=== PATIENT | male | born 1950 | race Caucasian/White ===

== ENCOUNTER 2016-07-15 09:25 | Inpatient (IN) ==
[2016-07-13 15:17] LABS: Basophils % 0.4 % (0.0-0.8); Eosinophils # 0.3 10*3/uL (0.0-0.87); Hematocrit 41.5 VOL% (42.0-52.0); Hemoglobin 14.7 GM/DL (14.0-18.0); Immature Granulocytes % 0.2 %; Immature Granulocytes Absolute 0.02 #; Lymphocytes # 2.7 10*3/uL (1.4-4.0); Mean Corpuscular HGB Conc 35.4 GM/DL (32-36); Mean Corpuscular Hemoglobin 33 PG (27-34); Mean Corpuscular Volume 93.3 FL (87-102); Mean Platelet Volume 9.6 FL (9.6-12.0); Monocytes # 0.7 10*3/uL (0.11-0.8); Monocytes % 7.9 % (1.7-12.7); Neutrophils # 4.7 10*3/uL (1.4-7.4); Neutrophils % 56.5 % (38.7-73.9); Platelet Count 215 10*3/uL (130-400); Red Blood Count 4.45 10*6/uL (3.8-5.5); Red Cell Distribution Width 11.7 % (9.3-17.3); White Blood Count 8.3 10*3/uL (4.5-13.71)
[2016-07-13 15:41] LABS: Calcium 8.7 MG/DL (8.5-10.1); Osmolality,Calculated 285.4 MOS/KG (273-304); Potassium 4.7 MMOL/L (3.5-5.1)
--- NOTE | 2016-07-13 16:29 | XRay Report ---
XR chest 2V Indication: Preop evaluation Comparison: Chest x-ray dated January 23, 2016 Technique: Frontal and lateral views of the chest Findings: Cardiomediastinal silhouette is stable in configuration. Continued elevation of the right hemidiaphragm. Chronic changes of lungs without focal consolidation, pleural effusion, or pneumothorax. Osseous and surrounding soft tissue structures appear grossly unchanged. IMPRESSION: Stable chest x-ray without acute cardiopulmonary process demonstrated. Continued elevation of the right hemidiaphragm. PROCEDURE INTERPRETED AT [facility] DEPARTMENT OF RADIOLOGY Final Report Signed by: Dr Alvin Egan
--- NOTE | 2016-07-15 10:19 | EKG Report ---
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
[2016-07-15] MEDS ORDERED: LACTATED RINGERS 1,000 ML IV SCH (10:30)
[2016-07-15] MEDS ORDERED: FAMOTIDINE 20 MG TABLET PO ONE (10:32)
[2016-07-15] MEDS ORDERED: DIAZEPAM 5 MG TABLET PO ONE (10:32)
[2016-07-15] MEDS ORDERED: DIAZEPAM 5 MG TABLET ONE (10:43)
[2016-07-15] MEDS ORDERED: ceFAZolin 1,000 MG VIAL ONE (10:43)
[2016-07-15] MEDS ORDERED: FAMOTIDINE 20 MG TABLET ONE (10:44)
[2016-07-15] MEDS ORDERED: SODIUM CHLORIDE 0.9% 100 ML IV ONE (10:44)
--- NOTE | 2016-07-15 12:30 | History and Physical Update ---
History and Physical Update - History and Physical H&P was reviewed, the patient examined and there: are no changes in the patients condition since last H&P was completed. (I discussed the surgical plan with the patient. I discussed the possibility of a fibular osteotomy. All questions were answered.)
[2016-07-15] MEDS ORDERED: LIDOCAINE 100 MG/5 ML SYRINGE ONE (13:14)
[2016-07-15] MEDS ORDERED: PROPOFOL 200 MG/20 ML VIAL IV ONE (13:14)
[2016-07-15] MEDS ORDERED: ONDANSETRON 4 MG/2 ML VIAL ONE ×2 (13:14→17:04)
[2016-07-15] MEDS ORDERED: ROPIVACAINE 0.5% 30 ML VIAL ONE (15:04)
[2016-07-15] MEDS ORDERED: BACITRACIN OINT 0.9 GM PACK TOP ONE (16:05)
[2016-07-15] MEDS ORDERED: DOCUSATE SODIUM 100 MG CAPSULE PO PRN (16:20)
--- NOTE | 2016-07-15 16:20 | XRay Report ---
XR tibia fibula LT Indication: Hardware revision Comparison: None available Findings: Fluoroscopic imaging was provided during revision of the left tibial markie. Hardware position appears to within normal limits. There is osteotomy of the fibula. Fluoroscopy time 107 seconds Impression: Hardware revision left tibia as described above. PROCEDURE INTERPRETED AT [facility] DEPARTMENT OF RADIOLOGY Final Report Signed by: Dr. Mahin Guillen
[2016-07-15] MEDS ORDERED: DEXTROSE 50% 25 GM/50 ML VIAL IV PRN (16:21)
[2016-07-15] MEDS ORDERED: GLUCAGON 1 MG VIAL IM PRN (16:21)
[2016-07-15] MEDS ORDERED: ONDANSETRON 4 MG/2 ML VIAL IV PRN ×2 (16:22→17:08)
[2016-07-15] MEDS ORDERED: MAGNESIUM HYDROXIDE SUSP 30 ML UDCUP PO PRN (16:22)
[2016-07-15] MEDS ORDERED: KETOROLAC 30 MG/1 ML VIAL IV PRN (16:22)
[2016-07-15] MEDS ORDERED: MORPHINE 2 MG/1 ML SYRINGE IV PRN (16:22)
--- NOTE | 2016-07-15 16:37 | Operative Note ---
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 His limb was exsanguinated with Esmarch. Tourniquet was inflated to 300 mmHg. Estimated tourniquet time was 90 minutes. It was released prior to intramedullary reaming. The lateral end of the broken screw was identified with image intensification. A longitudinal incision was made over the anterior lateral aspect of his distal leg. Using sharp and blunt dissection the screw was identified and removed. A longitudinal incision was made to remove the anterior to posterior screw. The retinaculum was incised longitudinally. The contents of the anterior compartment were retracted laterally. The screw was identified and easily removed. Incision was made medially. The medial to lateral screw was identified and the medial portion of the broken screw was removed. A longitudinal incision incorporating his 2 previous incisions was made over his proximal interlocks. The proximal interlocks were easily removed. A longitudinal incision was made median parapatellar. The end cap was identified and removed. The tibial nail was removed. A longitudinal incision was made laterally over his distal fibular diaphysis. Deep fascia was incised. The fibula was exposed subperiosteally. An oblique osteotomy was performed resecting approximately a centimeter. A beaded guidewire was passed. The intramedullary canal was sequentially reamed to 14 mm. A blocking screw was placed from anterior to posterior in attempt to correct the varus alignment. The blocking screw cut through the bone when the nail was passed. The screw was subsequently removed. A Synthes 13 x 330 mm nail was placed. A dynamic proximal locking screw was placed. Distally, the nail was locked through an anterior to posterior screw and an oblique distal screw. His multiple wounds were irrigated with normal saline. Deep layers were approximated with 0 Vicryl. Subcutaneous used tissues proximate 3-0 Vicryl. Eduin used to approximate the skin. A sterile dressing and short leg posterior molded splint was applied. The patient received an intraoperative popliteal block. He was extubated and transferred recovery room in stable condition. Image intensification was used in multiple planes throughout the procedure. Surgeon / Physician: Esvin Cummins Jr. Results - Labs CBC & BMP: 07/16/16 04:43 07/16/16 04:43 Discharge Plan - Discharge Medications No Action sitaGLIPtin [Januvia] 100 mg PO DAILY glyBURIDE [Glyburide] 5 mg PO BID Docusate Sodium [Colace] 100 mg PO DAILY PRN PRN Reason: Constipation Aspirin [Children's Aspirin] 81 mg PO DAILY Omeprazole [Prilosec] 20 mg PO DAILY Lisinopril 40 mg PO BID NIFEdipine XL TAB [Procardia Xl] 60 mg PO DAILY HYDROcodone/ACETAMIN 10-325 [[place] 10-325] 1 tablet PO Q6H PRN #24 tablet PRN Reason: finger fracture Celecoxib [Celebrex] 200 mg PO DAILY Gabapentin 300 mg PO TID Duloxetine HCl [Cymbalta] 60 mg PO DAILY Metoprolol Tartrate Tab [Lopressor Tab] 100 mg PO BID Magnesium Oxide [Magox 400] 2 tablet PO BID - Follow Up or Referral - Forms/Instructions
[2016-07-15] MEDS ORDERED: DESFLURANE 1 UNIT/15 MINUTE INH ONE (16:50)
[2016-07-15] MEDS ORDERED: MIDAZOLAM 2 MG/2 ML VIAL ONE (16:50)
[2016-07-15] MEDS ORDERED: ePHEDrine 50 MG/ML AMP ONE (16:50)
[2016-07-15] MEDS ORDERED: SEVOFLURANE 1 UNIT/15 MINUTE INH ONE (16:50)
[2016-07-15] MEDS ORDERED: fentaNYL 100 MCG/2 ML VIAL ONE (16:50)
[2016-07-15] MEDS ORDERED: ACETAMINOPHEN 1,000 MG/100 ML VIAL IV ONE (16:50)
[2016-07-15] MEDS ORDERED: SODIUM CHLORIDE 0.9% 1,000 ML IV ONE (16:50)
[2016-07-15] MEDS ORDERED: HYDROmorphone 2 MG/1 ML VIAL ONE (17:04)
[2016-07-15] MEDS: HYDROmorphone 2 MG/1 ML VIAL IV PRN ×4 (17:04→17:19)
[2016-07-15] MEDS: INSULIN LISPRO 100 UNIT/ML SUBCUT SCH (18:48)
[2016-07-15] MEDS: LACTATED RINGERS 1,000 ML IV SCH ×2 (19:33→19:34)
[2016-07-15] MEDS: MORPHINE 2 MG/1 ML SYRINGE IV PRN (22:02)
[2016-07-15] MEDS: MAGNESIUM OXIDE 400 MG TABLET PO SCH (22:03)
[2016-07-15] MEDS: GABAPENTIN 300 MG CAPSULE PO SCH (22:03)
[2016-07-15] MEDS: METOPROLOL TARTRATE 100 MG TABLET PO SCH (22:03)
[2016-07-15] MEDS: LISINOPRIL 20 MG TABLET PO SCH (22:03)
[2016-07-16] MEDS: INSULIN LISPRO 100 UNIT/ML SUBCUT SCH ×5 (00:50→18:18)
[2016-07-16] MEDS: MORPHINE 2 MG/1 ML SYRINGE IV PRN ×2 (02:05→12:32)
[2016-07-16] MEDS: LACTATED RINGERS 1,000 ML IV SCH (02:07)
[2016-07-16 05:37] LABS: Basophils % 0.1 % (0.0-0.8); Eosinophils # 0.2 10*3/uL (0.0-0.87); Eosinophils % 2.2 % (0.00-10.9); Hematocrit 35.2 VOL% (42.0-52.0); Hemoglobin 11.7 GM/DL (14.0-18.0); Immature Granulocytes % 0.5 %; Immature Granulocytes Absolute 0.04 #; Lymphocytes # 2.2 10*3/uL (1.4-4.0); Lymphocytes % 26.4 % (21.2-54.2); Mean Corpuscular HGB Conc 33.2 GM/DL (32-36); Mean Corpuscular Hemoglobin 32 PG (27-34); Mean Corpuscular Volume 95.9 FL (87-102); Mean Platelet Volume 9.8 FL (9.6-12.0); Monocytes # 0.8 10*3/uL (0.11-0.8); Neutrophils # 5.2 10*3/uL (1.4-7.4); Neutrophils % 61.8 % (38.7-73.9); Platelet Count 157 10*3/uL (130-400); Red Blood Count 3.67 10*6/uL (3.8-5.5); Red Cell Distribution Width 11.9 % (9.3-17.3); White Blood Count 8.5 10*3/uL (4.5-13.71)
[2016-07-16 06:08] LABS: Calcium 8.2 MG/DL (8.5-10.1); Osmolality,Calculated 285.4 MOS/KG (273-304)
--- NOTE | 2016-07-16 08:26 | Internal Medicine Consult Note ---
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 Patient is doing well after surgery. He will be started on therapy * Hypertension. Blood pressure is stable * Diabetes. Will keep him on a sliding scale along with his home medication * Coronary artery disease. Stable * Depression. Continue current medications * Discussed with . Patient will probably need a swing bed Current Visit: No Qualifiers: Encounter type: initial encounter Fracture type: closed Qualified Code(s) : S82.202A - Unspecified fracture of shaft of left tibia, initial encounter for closed fracture (2) Coronary artery disease Status: Acute Current Visit: No (3) Gastroesophageal reflux disease Status: Acute Current Visit: No (4) Depression Status: Chronic Current Visit: No (5) Hypertension Status: Chronic Current Visit: No Qualifiers: Hypertension type: essential hypertension Qualified Code(s): I10 - Essential (primary) hypertension (6) Type 2 diabetes mellitus Status: Chronic Current Visit: No Qualifiers: Diabetes mellitus complication status: without complication History of Present Illness - Consult Narrative Reason for consult: Medical management History of present illness: Mr. Roni Martin is a 66 year old male with history of multiple medical problems including coronary artery disease, hypertension, diabetes, chronic smoking, back pain and chronic alcoholism. Patient was admitted to undergo repair of left tibial nonunion with exchange intramedullary nailing and fibular osteotomy and hardware removal. Patient underwent surgery yesterday and is feeling okay this morning. He denies any chest pain or shortness of breath. He denies any nausea vomiting or diarrhea. He denies any fever or chills. He has quit smoking according to the patient. He is trying to quit alcohol use. He lives at home with his . CC: Esvin Cummins Jr., - Home Medications and Allergies Home Medications: Home Medications Medication Instructions Recorded Confirmed Type Aspirin [Children's Aspirin] 81 mg PO DAILY 12/05/14 07/15/16 History Docusate Sodium [Colace] 100 mg PO DAILY PRN 12/05/14 07/15/16 History Lisinopril 40 mg PO BID 12/05/14 07/15/16 History NIFEdipine XL TAB [Procardia Xl] 60 mg PO DAILY 12/05/14 07/15/16 History Omeprazole [Prilosec] 20 mg PO DAILY 12/05/14 07/15/16 History glyBURIDE [Glyburide] 5 mg PO BID 12/05/14 07/15/16 History sitaGLIPtin [Januvia] 100 mg PO DAILY 12/05/14 07/15/16 History HYDROcodone/ACETAMIN 10-325 [[place] 1 tablet PO Q6H PRN #24 tablet 03/08/1507/15 Rx 10-325] Celecoxib [Celebrex] 200 mg PO DAILY 07/14/16 07/15/16 History Duloxetine HCl [Cymbalta] 60 mg PO DAILY 07/14/16 07/15/16 History Gabapentin 300 mg PO TID 07/14/16 07/15/16 History Magnesium Oxide [Magox 400] 2 tablet PO BID 07/14/16 07/15/16 History Metoprolol Tartrate Tab [Lopressor 100 mg PO BID 07/14/16 07/15/16 History Tab] Allergies/Adverse Reactions: Allergies Allergy/AdvReac Type Severity Reaction Status Date / Time Iodinated Contrast Media - Allergy Severe ANAPHYLAXIS Verified 07/15/16 10:01 IV Dye iodine AdvReac Severe ANAPHYLAXIS Verified 07/15/16 10:01 12 point system: reviewed and no additional remarkable complaints except as stated (Mentioned in HPI) Medical,Surgical,& Family Hx - Medical History Cardio: History of: CAD (s/p stents x2 by Dr Mena), Hypertension Psychological: History of: Depression Neurology: No history of: Seizures HEENT: History of: Dental Problems (IMPLANTS) No history of: Glaucoma Endocrine: History of: Diabetes Mellitus (IDDM), Diabetes Mellitus (NIDDM), Dyslipidemia Genitourinary: History of: Kidney Stones Gastrointestinal: History of: GERD, Gastrointestinal Bleed (ulcer), GI Problems (iron def anemia) Musculoskeletal: History of: Degenerative Disk Disease, Herniated Disk, Musculoskeletal Problems (FX LEFT TIBIA) No history of: Amputation Hematology: History of: Anemia (iron deficient) No history of: Blood Transfusion Reaction Other: No history of: Anesthesia Reactions - Surgical History Cardiac Surgeries: Sugical HX of: Cardiac Catheterization (stents x2) Thoracic Surgeries: Patient denies;: Organ Transplant Neurologic Surgeries: Patient denies: Neurologic Surgery HEENT Surgeries: Patient denies: Eye Surgery Abdominal Surgeries: Surgical HX of: Colonoscopy Patient denies: Abdominal Surgery Reproductive Surgeries: Patient denies;: Genitourinary Surgery Orthopedic Surgeries: Surgical HX of;: Orthopedic Surgery (back surgery x 5, pin in left foot) Patient denies;: Implanted Devices - Family History Family History: Reports;: Family Cancer (mother-lung), Family Diabetes, Family Hypertension - Social History Smoking Status: Former smoker (Quit a few weeks ago. Has been a heavy smoker) Frequency of Alcohol Use: Frequently Type of Drug Use: None Marital Status: Lives With:: Spouse Functional capacity: uses cane/walker Exam (Progress Note) - Constitutional Vitals: Period Temp Pulse Resp BP Sys/Salas Pulse Ox Last 24 Hr 97.5 F-98.6 F 72-96 16-23 112-175/63-98 93-100 Exam: Examination: GENERAL: NAD. HEENT: PERRLA. EOMI. Mucous membranes are moist. NECK: Neck is supple. No JVD. No carotid bruit. No thyromegaly. CVS: Regular rate and rhythm. S1 and S2 are normal. RESPIRATORY: Lungs are clear. No rales or rhonchi. ABDOMEN: Soft and nontender. Bowel sounds are present. No hepatosplenomegaly. EXT: No edema. Peripheral pulses are present. 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 Cranial nerves II through XII are grossly intact. SKIN: Warm and dry. MSK: Cast present on the left lower extremity Results - Labs CBC & BMP: 07/16/16 04:43 07/16/16 04:43 Lab Results: I have reviewed the past 24 hour labs
--- NOTE | 2016-07-16 08:41 | Orthopedic Progress Note ---
Orthopedics - Subjective Interval history: Isidoro Tamayo Junior is relatively comfortable. He did have pain overnight. Left lower extremity splinted. He can flex extend his toes. Sensations grossly intact light touch. Capillary refills less than 2 seconds. Plan: Mobilize with physical therapy. I discussed planning care with Dr. Kaufman. We've decided that swing bed would be in his best interest to manage his medical comorbidities. Exam - Constitutional Vitals: Period Temp Pulse Resp BP Sys/Salas Pulse Ox Last 24 Hr 97.5 F-98.6 F 72-96 16-23 112-175/63-98 93-100 Results - Labs CBC & BMP: 07/16/16 04:43 07/16/16 04:43
[2016-07-16] MEDS: MAGNESIUM OXIDE 400 MG TABLET PO SCH ×2 (09:31→21:02)
[2016-07-16] MEDS: DULoxetine 30 MG CAPSULE PO SCH (09:31)
[2016-07-16] MEDS: GABAPENTIN 300 MG CAPSULE PO SCH ×3 (09:31→21:02)
[2016-07-16] MEDS: LISINOPRIL 20 MG TABLET PO SCH ×2 (09:32→21:02)
[2016-07-16] MEDS: ASPIRIN CHEW 81 MG TABLET PO SCH (09:34)
[2016-07-16] MEDS: METOPROLOL TARTRATE 100 MG TABLET PO SCH ×2 (09:34→21:03)
[2016-07-16] MEDS: PANTOPRAZOLE 40 MG TABLET PO SCH (09:34)
[2016-07-16] MEDS: glyBURIDE 5 MG TABLET PO SCH ×2 (09:34→21:02)
[2016-07-16] MEDS: sitaGLIPtin 100 MG TABLET PO SCH (09:35)
--- NOTE | 2016-07-16 10:17 | Anesthesia ---
Anesthesia Procedures - Nerve Blocks Main Anesthetic: general anesthesia Location: OR Position: supine Type of Block: Right: Popliteal Patinet Consent: Patinet consented for above nerve block., Risks and benefits were discussed with patient,including infection,, bleeding,injury to surrounding structures, seizure, temporary nerve, Patient understands and accepts potential risks/benefits and agrees to, proceed. ASA Monitors on: pulse oximetry, EKG, BP cuff, oxygen via Local Anesthetic: 0.5% Ropivicaine Ultrasound Used to: Recognize Landmarks (At the(lt)popliteal fossa,patient in ( rt)semilateral position,Stimuplex needle G#22 4" long was advanced under direct visualization,sciatic popliteal nerve was identified,30 c of rovipicaine was administred in aliquots of 5cc upper and above the nerve,just before the spliting in tibial and peroneal nerve.) Nerve Stimulator used: Yes Inject slowly in 5cc increments with:: Negative aspitation of heme Epidural Block: 18 G Tuohy needle into
--- NOTE | 2016-07-16 10:23 | Anesthesia ---
Anesthesia Post OP - Post Ansesthetic Evaluation Patient seen in post op: Yes Resp: within normal limits CV: within normal limits Mental: within normal limits Temp: within normal limits [id number]: within normal limits Nausea and Vomiting: within normal limits Pain: within normal limits
[2016-07-16] MEDS: INSULIN GLARGINE 100 UNIT/ML SUBCUT SCH (21:04)
[2016-07-17] MEDS: INSULIN LISPRO 100 UNIT/ML SUBCUT SCH ×4 (00:48→17:45)
[2016-07-17 06:17] LABS: Basophils % 0.1 % (0.0-0.8); Eosinophils # 0.2 10*3/uL (0.0-0.87); Eosinophils % 3.3 % (0.00-10.9); Hematocrit 35.9 VOL% (42.0-52.0); Hemoglobin 11.6 GM/DL (14.0-18.0); Immature Granulocytes % 0.4 %; Immature Granulocytes Absolute 0.03 #; Lymphocytes # 1.7 10*3/uL (1.4-4.0); Lymphocytes % 24.9 % (21.2-54.2); Mean Corpuscular HGB Conc 32.3 GM/DL (32-36); Mean Corpuscular Hemoglobin 32 PG (27-34); Mean Corpuscular Volume 98.1 FL (87-102); Mean Platelet Volume 9.9 FL (9.6-12.0); Monocytes # 0.7 10*3/uL (0.11-0.8); Monocytes % 9.4 % (1.7-12.7); Neutrophils # 4.3 10*3/uL (1.4-7.4); Neutrophils % 61.9 % (38.7-73.9); Platelet Count 160 10*3/uL (130-400); Red Blood Count 3.66 10*6/uL (3.8-5.5); Red Cell Distribution Width 11.9 % (9.3-17.3); White Blood Count 6.9 10*3/uL (4.5-13.71)
[2016-07-17 06:47] LABS: Band Neutrophils 1 % (0-10); Eosinophils 5 % (0-10); Hypochromasia 1+; Lymphocytes 21 % (20-55); Segmented Neutrophils 67 % (50-85); Total Cells Counted 100
[2016-07-17 06:48] LABS: Platelet Estimate Adequate
--- NOTE | 2016-07-17 08:46 | Internal Med Progress Note ---
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 Continue PT and * Hypertension. Blood pressure is stable * Diabetes. Will keep him on a sliding scale along with his home medication * Coronary artery disease. Stable * Depression. Continue current medications * Discussed with . Swing bed on Wednesday Current Visit: No Qualifiers: Encounter type: initial encounter Fracture type: closed Qualified Code(s) : S82.202A - Unspecified fracture of shaft of left tibia, initial encounter for closed fracture (2) Coronary artery disease Status: Acute Current Visit: No (3) Gastroesophageal reflux disease Status: Acute Current Visit: No (4) Depression Status: Chronic Current Visit: No (5) Hypertension Status: Chronic Current Visit: No Qualifiers: Hypertension type: essential hypertension Qualified Code(s): I10 - Essential (primary) hypertension (6) Type 2 diabetes mellitus Status: Chronic Current Visit: No Qualifiers: Diabetes mellitus complication status: without complication Internal Medicine - PN: Subj Interval history: He is feeling better. No chest pain or shortness of breath. No nausea or vomiting. Exam (Progress Note) - Constitutional Vitals: Period Temp Pulse Resp BP Sys/Salas Pulse Ox Last 24 Hr 97.0 F-97.5 F 72-88 14-20 119-143/64-81 91-95 Exam: Examination: GENERAL: NAD. NECK: Neck is supple. CVS: Regular rate and rhythm. RESPIRATORY: Lungs are clear. ABDOMEN: Soft and nontender. EXT: No edema. DENSITY CONTROL PUNCHER: Patient is awake, alert and oriented to time place and person. SKIN: Warm and dry. MSK: Cast present on the left lower extremity Results - Labs CBC & BMP: 07/17/16 05:30 07/16/16 04:43 Lab Results: I have reviewed the past 24 hour labs
--- NOTE | 2016-07-17 09:04 | Orthopedic Progress Note ---
Orthopedics - Subjective Interval history: Isidoro Tamayo Jr is doing well this am. He is feeling better. Dressing is clean, dry and intact. He can flex extend his toes. Capillary refills less than 2 seconds. Plan: Continue to mobilize with physical therapy. Plan swing bed placement Wednesday. I discussed plan of care with Dr. Kaufman. Since he is going to be hospitalized, EtOH prophylaxis was initiated with an Ativan taper. Exam - Constitutional Vitals: Period Temp Pulse Resp BP Sys/Salas Pulse Ox Last 24 Hr 97.0 F-97.5 F 72-88 14-20 119-143/64-81 91-95 Results - Labs CBC & BMP: 07/17/16 05:30 07/16/16 04:43
[2016-07-17] MEDS: LORazepam 1 MG TABLET PO SCH ×3 (09:52→20:59)
[2016-07-17] MEDS: MULTIVITAMIN (CENTRUM) TABLET PO SCH (09:52)
[2016-07-17] MEDS: DULoxetine 30 MG CAPSULE PO SCH (09:52)
[2016-07-17] MEDS: GABAPENTIN 300 MG CAPSULE PO SCH ×3 (09:52→20:59)
[2016-07-17] MEDS: METOPROLOL TARTRATE 100 MG TABLET PO SCH ×2 (09:53→20:59)
[2016-07-17] MEDS: FOLIC ACID 1 MG TABLET PO SCH (09:53)
[2016-07-17] MEDS: sitaGLIPtin 100 MG TABLET PO SCH (09:53)
[2016-07-17] MEDS: glyBURIDE 5 MG TABLET PO SCH ×2 (09:53→21:02)
[2016-07-17] MEDS: LISINOPRIL 20 MG TABLET PO SCH ×2 (09:53→20:59)
[2016-07-17] MEDS: PANTOPRAZOLE 40 MG TABLET PO SCH (09:53)
[2016-07-17] MEDS: MAGNESIUM OXIDE 400 MG TABLET PO SCH ×2 (09:53→20:59)
[2016-07-17] MEDS: THIAMINE 100 MG TABLET PO SCH (09:53)
[2016-07-17] MEDS: ASPIRIN CHEW 81 MG TABLET PO SCH (09:54)
--- NOTE | 2016-07-17 12:21 | Pathology Report from [facility] ---
ACCESSION # : [id number] PATIENT NAME : Jr. Tamayo Thomas E. ORDERING DR : MARION QUINN MD CLINICAL HX: LT tibia non-union POST-OP DX: Same SPECIMEN INFO: Retained hardware GROSS DESCRIPTION: Received fresh labeled with the patient's name and consists of a metal markie and five screws and pin. Gross only. DIAGNOSIS FOR KARTHIK Daigle JR. HALEY: Orthopedic hardware, gross only. SERVICE DATE: 07/16/2016 REPORT DATE: 07/17/2016 PATHOLOGIST: Gregg Arce M.D. [facility]ITAL[facility]
[2016-07-17] MEDS: INSULIN GLARGINE 100 UNIT/ML SUBCUT SCH (21:01)
[2016-07-18] MEDS: INSULIN LISPRO 100 UNIT/ML SUBCUT SCH ×4 (02:57→19:38)
[2016-07-18] MEDS: DULoxetine 30 MG CAPSULE PO SCH (09:24)
[2016-07-18] MEDS: METOPROLOL TARTRATE 100 MG TABLET PO SCH ×2 (09:25→21:46)
[2016-07-18] MEDS: GABAPENTIN 300 MG CAPSULE PO SCH ×3 (09:25→21:44)
[2016-07-18] MEDS: MULTIVITAMIN (CENTRUM) TABLET PO SCH (09:25)
[2016-07-18] MEDS: sitaGLIPtin 100 MG TABLET PO SCH (09:25)
[2016-07-18] MEDS: glyBURIDE 5 MG TABLET PO SCH ×2 (09:26→23:04)
[2016-07-18] MEDS: FOLIC ACID 1 MG TABLET PO SCH (09:26)
[2016-07-18] MEDS: MAGNESIUM OXIDE 400 MG TABLET PO SCH ×2 (09:26→21:45)
[2016-07-18] MEDS: ASPIRIN CHEW 81 MG TABLET PO SCH (09:26)
[2016-07-18] MEDS: LORazepam 1 MG TABLET PO SCH ×2 (09:33→21:44)
[2016-07-18] MEDS: THIAMINE 100 MG TABLET PO SCH (09:33)
[2016-07-18] MEDS: LISINOPRIL 20 MG TABLET PO SCH ×2 (09:34→21:45)
[2016-07-18] MEDS: PANTOPRAZOLE 40 MG TABLET PO SCH (09:34)
--- NOTE | 2016-07-18 10:14 | Orthopedic Progress Note ---
Assessment and Plan (1) Fracture of left tibia and fibula Status: Acute Assessment and plan: cont care: PT, pain control, dvt prophy. d/c planning for Mon to swing bed Current Visit: No Qualifiers: Encounter type: initial encounter Fracture type: closed Qualified Code(s) : S82.202A - Unspecified fracture of shaft of left tibia, initial encounter for closed fracture Orthopedics - Subjective Interval history: states pain increased yesterday, but now under control with pain meds. no events overnight Exam - Constitutional Vitals: Period Temp Pulse Resp BP Sys/Salas Pulse Ox Last 24 Hr 96.6 F-97.8 F 76-90 17-20 113-154/64-79 93-98 - Extremities Exam Extremities exam: Present: normal inspection (lle: comp soft, sensation intact, full arom toes and ankle, cap refill brisk) Results - Labs CBC & BMP: 07/17/16 05:30 07/16/16 04:43 Lab Results: I have reviewed the past 24 hour labs
--- NOTE | 2016-07-18 18:41 | Family Practice Progress Note ---
Family Practice - PN: Subj Interval history: Patient continues to improve on daily basis. Pain well controlled on present medications. Denies any new complaints. Scheduled for swing bed placement on Wednesday. We'll continue present treatment plan Exam (Progress Note) - Constitutional Vitals: Period Temp Pulse Resp BP Sys/Salas Pulse Ox Last 24 Hr 96.9 F-97.8 F 78-93 17-20 113-154/64-88 92-98 Results - Labs CBC & BMP: 07/17/16 05:30 07/16/16 04:43
[2016-07-18] MEDS: INSULIN GLARGINE 100 UNIT/ML SUBCUT SCH (23:03)
[2016-07-19 02:22] LABS: Basophils % 0.1 % (0.0-0.8); Eosinophils # 0.3 10*3/uL (0.0-0.87); Eosinophils % 3.7 % (0.00-10.9); Hemoglobin 11.3 GM/DL (14.0-18.0); Immature Granulocytes % 0.6 %; Immature Granulocytes Absolute 0.04 #; Lymphocytes # 1.4 10*3/uL (1.4-4.0); Lymphocytes % 19.8 % (21.2-54.2); Mean Corpuscular HGB Conc 33.2 GM/DL (32-36); Mean Corpuscular Hemoglobin 32 PG (27-34); Mean Corpuscular Volume 96.6 FL (87-102); Mean Platelet Volume 9.5 FL (9.6-12.0); Monocytes # 0.8 10*3/uL (0.11-0.8); Monocytes % 11.4 % (1.7-12.7); Neutrophils # 4.5 10*3/uL (1.4-7.4); Neutrophils % 64.4 % (38.7-73.9); Platelet Count 184 10*3/uL (130-400); Red Blood Count 3.52 10*6/uL (3.8-5.5); Red Cell Distribution Width 11.9 % (9.3-17.3)
[2016-07-19 02:56] LABS: Potassium 3.8 MMOL/L (3.5-5.1)
[2016-07-19] MEDS: INSULIN LISPRO 100 UNIT/ML SUBCUT SCH ×4 (04:14→18:33)
[2016-07-19] MEDS ORDERED: LORazepam 1 MG TABLET PO ONE (09:00)
[2016-07-19] MEDS: ASPIRIN CHEW 81 MG TABLET PO SCH (09:32)
[2016-07-19] MEDS: LORazepam 1 MG TABLET PO SCH (09:32)
[2016-07-19] MEDS: METOPROLOL TARTRATE 100 MG TABLET PO SCH ×2 (09:32→21:15)
[2016-07-19] MEDS: FOLIC ACID 1 MG TABLET PO SCH (09:32)
[2016-07-19] MEDS: DULoxetine 30 MG CAPSULE PO SCH (09:33)
[2016-07-19] MEDS: glyBURIDE 5 MG TABLET PO SCH ×2 (09:33→21:15)
[2016-07-19] MEDS: PANTOPRAZOLE 40 MG TABLET PO SCH (09:33)
[2016-07-19] MEDS: GABAPENTIN 300 MG CAPSULE PO SCH ×3 (09:33→21:15)
[2016-07-19] MEDS: MAGNESIUM OXIDE 400 MG TABLET PO SCH ×2 (09:33→21:15)
[2016-07-19] MEDS: MULTIVITAMIN (CENTRUM) TABLET PO SCH (09:33)
[2016-07-19] MEDS: sitaGLIPtin 100 MG TABLET PO SCH (09:33)
[2016-07-19] MEDS: LISINOPRIL 20 MG TABLET PO SCH ×2 (09:34→21:15)
[2016-07-19] MEDS: THIAMINE 100 MG TABLET PO SCH (09:38)
--- NOTE | 2016-07-19 12:01 | Orthopedic Progress Note ---
Assessment and Plan (1) Fracture of left tibia and fibula Status: Acute Assessment and plan: cont care: PT, pain control, dvt prophy. d/c planning to swing bed Current Visit: No Qualifiers: Encounter type: initial encounter Fracture type: closed Qualified Code(s) : S82.202A - Unspecified fracture of shaft of left tibia, initial encounter for closed fracture Orthopedics - Subjective Interval history: pt s/e, no complaints, states she is feeling better today Exam - Constitutional Vitals: Period Temp Pulse Resp BP Sys/Salas Pulse Ox Last 24 Hr 96.9 F-98.5 F 78-95 14-19 132-155/72-90 92-99 - Extremities Exam Extremities exam: Present: normal inspection (RLE: dressing c/d/i, comp soft, sensation intact, cap refill brisk, calf supple. good AROM toes/ankle) Results - Labs CBC & BMP: 07/19/16 02:07 07/19/16 02:07 Lab Results: I have reviewed the past 24 hour labs
--- NOTE | 2016-07-19 14:12 | Family Practice Progress Note ---
Family Practice - PN: Subj Interval history: Patient generally has been doing well. states that he has been extremely confused and wants to ambulate in lim. After reviewing this with she states that it started after patient was placed on the Ativan. He was given Ativan for alcohol withdrawal prophylaxis. That is the only new medication that he hasn't taken in the past. She states that he has not had any tremors or extreme anxiety. He is otherwise doing well. Advised that we will change the Ativan in place on lower dose Tranxene. We will have staff call me if any agitation or other signs of alcohol withdrawal occur. Exam (Progress Note) - Constitutional Vitals: Period Temp Pulse Resp BP Sys/Salas Pulse Ox Last 24 Hr 97.4 F-98.5 F 78-95 14-19 132-155/72-90 93-99 Results - Labs CBC & BMP: 07/19/16 02:07 07/19/16 02:07
[2016-07-19] MEDS: CLORAZEPATE 3.75 MG TABLET PO SCH ×2 (16:40→21:15)
[2016-07-19] MEDS: INSULIN GLARGINE 100 UNIT/ML SUBCUT SCH (21:14)
[2016-07-20] MEDS: INSULIN LISPRO 100 UNIT/ML SUBCUT SCH ×4 (01:31→12:03)
--- NOTE | 2016-07-20 08:56 | Discharge Summary ---
Hospital Course - Hospital Course Hospital Course: Mr Roni Martin was admitted after undergoing exchange intramedullary nailing of a left distal tibia nonunion. He underwent hardware removal and fibular osteotomy. He received perioperative antimicrobial prophylaxis. He received physical therapy. was consult to help manage his multiple medical problems. To help optimize his medical issues including diabetes, swing bed placement was recommended. He recieved EtOH prophylaxis. Discharge Plan - Discharge Data Disposition: Disch/Xfer to Snf Condition at Discharge: Stable Discharge Diet: diabetic diet Activity: ambulate only with your walker Hygiene: keep area(s) dry Weight Bearing at Discharge: non-weight bearing Driving: not until seen by doctor - Discharge Medications New HYDROcodone/ACETAMIN 10-325 [[place] 10-325] 2 tablet PO Q4H PRN #0 tablet PRN Reason: Pain Moderate (4-7) HYDROcodone/ACETAMIN 10-325 [[place] 10-325] 1 tablet PO Q4H PRN #0 tablet PRN Reason: Pain Moderate (4-7) Multivitamin (Centrum) [Centrum Tab] 1 tablet PO DAILY tablet Continue sitaGLIPtin [Januvia] 100 mg PO DAILY glyBURIDE [Glyburide] 5 mg PO BID Docusate Sodium [Colace] 100 mg PO DAILY PRN PRN Reason: Constipation Aspirin [Children's Aspirin] 81 mg PO DAILY Omeprazole [Prilosec] 20 mg PO DAILY Lisinopril 40 mg PO BID NIFEdipine XL TAB [Procardia Xl] 60 mg PO DAILY Gabapentin 300 mg PO TID Duloxetine HCl [Cymbalta] 60 mg PO DAILY Metoprolol Tartrate Tab [Lopressor Tab] 100 mg PO BID Magnesium Oxide [Magox 400] 2 tablet PO BID Insulin Glargine,Hum.rec.anlog [Candis SolJulienne] 70 unit SUBCUT BEDTIME Discontinued HYDROcodone/ACETAMIN 10-325 [[place] 10-325] 1 tablet PO Q6H PRN #24 tablet PRN Reason: finger fracture Celecoxib [Celebrex] 200 mg PO DAILY - Follow Up or Referral - Forms/Instructions Additional Discharge Instructions: Follow-up appointment in 10-14 days. Nonweightbearing left lower extremity. Keep splint clean, dry and intact. Prescription for [place] 7.5 with 30 tablets was written. No nicotine usage. Take a multivitamin daily. Exam - Constitutional Vitals: Period Temp Pulse Resp BP Sys/Salas Pulse Ox Last 24 Hr 96.1 F-98.6 F 80-98 16-20 139-151/70-88 96-96 Discharge Results Labs on day of discharge: Labs from last 24 hours 07/20/16 07/20/16 07/19/16 05:57 00:24 18:06 POC Glucose 187 H 74 108 H 07/19/16 12:26 POC Glucose 227 H DS: Provider Date of admission: 07/15/16 16:23 Primary care physician: Pierce Kaufman MD Attending physician on admission: Esvin Cummins Jr., Consults: 07/15/16 16:22 Consult to Physical Therapy [CONS] Routine Reason for Physical Therapy: Evaluate and Treat Start Therapy: Tomorrow Consult Comment: christie taylor 07/15/16 16:27 Consult to Physician [CONS] Routine Comment: dm storage management consultant Provider: Pierce Kaufman Consulting Provider Notified: Yes When should Consulting Provider be notified: Now Person Notified: dr. kaufman Date Notified: 07/16/16 Time Notified: 07:56 07/15/16 18:10 Consult to Pharmacy [CONS] Routine Reason for Pharmacy Consult: Adjust Meds Renal Funct Discharging clinician: Esvin Cummins Jr., Expected date of discharge: 07/20/16
--- NOTE | 2016-07-20 08:58 | Internal Med Progress Note ---
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 Continue PT and * Hypertension. Blood pressure is stable * Diabetes. Better controlled * Coronary artery disease. Stable * Depression. Continue current medications * To swing bed today Current Visit: No Qualifiers: Qualified Code(s): S82.202A - Unspecified fracture of shaft of left tibia, initial encounter for closed fracture; S82.402A - Unspecified fracture of shaft of left fibula, initial encounter for closed fracture (2) Coronary artery disease Status: Acute Current Visit: No (3) Gastroesophageal reflux disease Status: Acute Current Visit: No (4) Depression Status: Chronic Current Visit: No (5) Hypertension Status: Chronic Current Visit: No Qualifiers: Qualified Code(s): I10 - Essential (primary) hypertension (6) Type 2 diabetes mellitus Status: Chronic Current Visit: No Internal Medicine - PN: Subj Interval history: He is feeling better. No specific complaints. Exam (Progress Note) - Constitutional Vitals: Period Temp Pulse Resp BP Sys/Salas Pulse Ox Last 24 Hr 96.1 F-98.6 F 80-98 16-20 139-151/70-88 96-96 Exam: Examination: GENERAL: NAD. NECK: Neck is supple. CVS: Regular rate and rhythm. RESPIRATORY: Lungs are clear. ABDOMEN: Soft and nontender. EXT: No edema. SKIN: Warm and dry. MSK: Cast present on the left lower extremity Results - Labs CBC & BMP: 07/19/16 02:07 07/19/16 02:07 Lab Results: I have reviewed the past 24 hour labs
[2016-07-20] MEDS: ASPIRIN CHEW 81 MG TABLET PO SCH (09:30)
[2016-07-20] MEDS: MULTIVITAMIN (CENTRUM) TABLET PO SCH (09:31)
[2016-07-20] MEDS: sitaGLIPtin 100 MG TABLET PO SCH (09:31)
[2016-07-20] MEDS: glyBURIDE 5 MG TABLET PO SCH (09:31)
[2016-07-20] MEDS: GABAPENTIN 300 MG CAPSULE PO SCH (09:31)
[2016-07-20] MEDS: DULoxetine 30 MG CAPSULE PO SCH (09:31)
[2016-07-20] MEDS: LISINOPRIL 20 MG TABLET PO SCH (09:31)
[2016-07-20] MEDS: METOPROLOL TARTRATE 100 MG TABLET PO SCH (09:31)
[2016-07-20] MEDS: MAGNESIUM OXIDE 400 MG TABLET PO SCH (09:31)
[2016-07-20] MEDS: PANTOPRAZOLE 40 MG TABLET PO SCH (09:32)
[2016-07-20] MEDS: CLORAZEPATE 3.75 MG TABLET PO SCH (09:32)
[2016-07-20 12:22] VITALS: BP 147/74
== END 2016-07-20 12:40 | DRG 494 ==
LOC: N.OR 09:25 → N.SDSINP 09:26 → N.3E 17:45
PROVIDERS: ADMIT Orthopaedic Surgery; ATTEND Orthopaedic Surgery

== ENCOUNTER 2018-07-27 15:03 | Inpatient (IN) ==
[2018-07-27] MEDS ORDERED: DEXTROSE 50% 25 GM/50 ML SYRINGE IV PRN (15:08)
[2018-07-27] MEDS ORDERED: ONDANSETRON 4 MG/2 ML VIAL IV PRN (15:08)
[2018-07-27] MEDS ORDERED: ACETAMINOPHEN 325 MG TABLET PO PRN (15:08)
[2018-07-27] MEDS ORDERED: GLUCAGON 1 MG VIAL IM PRN ×2 (15:08→17:18)
[2018-07-27] MEDS ORDERED: DOCUSATE SODIUM 100 MG CAPSULE PO PRN (17:04)
[2018-07-27] MEDS ORDERED: DEXTROSE 50% 25 GM/50 ML VIAL IV PRN (17:18)
[2018-07-27] MEDS: SODIUM CHLORIDE 0.9% 1,000 ML IV SCH (17:18)
[2018-07-27] MEDS: CLORAZEPATE 3.75 MG TABLET PO PRN (17:39)
[2018-07-27 17:44] LABS: Basophils % 0.3 % (0.0-0.8); Hematocrit 41.5 VOL% (42.0-52.0); Hemoglobin 14.3 GM/DL (14.0-18.0); Immature Granulocytes % 0.9 %; Immature Granulocytes Absolute 0.09 #; Lymphocytes # 1.4 10*3/uL (1.4-4.0); Lymphocytes % 13.3 % (21.2-54.2); Mean Corpuscular HGB Conc 34.5 GM/DL (32-36); Mean Corpuscular Hemoglobin 33 PG (27-34); Mean Corpuscular Volume 96.5 FL (87-102); Mean Platelet Volume 9.4 FL (9.6-12.0); Monocytes # 1.4 10*3/uL (0.11-0.8); Neutrophils # 7.5 10*3/uL (1.4-7.4); Neutrophils % 72.5 % (38.7-73.9); Platelet Count 152 T/CUMM (130-400); White Blood Count 10.4 T/CUMM (4-12)
[2018-07-27 18:10] LABS: CKMB % 1.7 %; Troponin I 0.024 NG/ML (0.00-0.045)
[2018-07-27 18:46] LABS: Albumin 3.8 G/DL (3.4-5.0); Bilirubin,Total 1.1 MG/DL (0.2-1.0); Calcium 8.9 MG/DL (8.5-10.1); Osmolality,Calculated 263.5 MOS/KG (273-304); Potassium 3.8 MMOL/L (3.5-5.1); Total Protein 8.4 G/DL (6.4-8.3)
[2018-07-27 20:57] LABS: Apearance,Urine Slightly Hazy (Clear); Bilirubin,Urine Negative (Negative); Blood, Urine Moderate mg/dL (Negative); Glucose,Urine (UA) >=500 mg/dL (Negative); Granular Casts,Urine 3 /LPF (0-1); Hyaline Casts,Urine 18 /LPF (0-3); Ketones,Urine 20 mg/dL (Negative); Mucus,Urine Occasional /LPF (Occasional); Nitrite,Urine Negative (Negative); Protein,Urine 100 MG/DL; RBC,Urine 1 /HPF (0-4); Urine Color Yellow (Yellow); Urine Specific Gravity 1.024 (1.001-1.035); WBC,Urine <1 /HPF (0-6)
[2018-07-27 21:01] LABS: Barbiturates Screen,Urine Negative (Negative); Benzodiazepines Screen,Urine Negative (Negative); Cannabinoid Screen,Urine Negative (Negative); Opiate Screen,Urine Negative (Negative); Phencyclidine Screen,Urine Negative (Negative)
[2018-07-27] MEDS ORDERED: LORazepam 2 MG/1 ML VIAL IV ONE (21:18)
[2018-07-27] MEDS ORDERED: DILTIAZEM 50 MG/10 ML VIAL IV ONE (21:19)
[2018-07-27] MEDS ORDERED: DILTIAZEM 25 MG/5 ML VIAL IV ONE (21:24)
[2018-07-27] MEDS: dilTIAZem Drip 125 MG/125 ML PREMIX IV SCH (21:27)
[2018-07-27] MEDS ORDERED: METOPROLOL TARTRATE 5 MG/5 ML VIAL IV ONE (21:42)
[2018-07-27] MEDS: METOPROLOL TARTRATE 5 MG/5 ML VIAL IV SCH ×3 (21:45→21:55)
[2018-07-27] MEDS: LORazepam 2 MG/1 ML VIAL IV PRN (21:58)
[2018-07-27] MEDS ORDERED: MAGNESIUM SULF RIDER 2 GM in PREMIX 1 EACH IV PRN (22:08)
[2018-07-27] MEDS ORDERED: MAGNESIUM SULF RIDER 4 GM in PREMIX 1 EACH IV PRN (22:08)
[2018-07-27 22:45] LABS: Potassium 4.1 MMOL/L (3.5-5.1)
[2018-07-27] MEDS: GABAPENTIN 600 MG TABLET PO SCH (23:25)
[2018-07-27] MEDS: METOPROLOL TARTRATE 100 MG TABLET PO SCH (23:25)
[2018-07-27] MEDS: LISINOPRIL 20 MG TABLET PO SCH (23:25)
[2018-07-27] MEDS: glyBURIDE 5 MG TABLET PO SCH (23:25)
[2018-07-27] MEDS: MAGNESIUM OXIDE 400 MG TABLET PO SCH (23:25)
[2018-07-27] MEDS: DOCUSATE SODIUM 100 MG CAPSULE PO SCH (23:25)
[2018-07-27] MEDS: INSULIN LISPRO 100 UNIT/ML SUBCUT SCH (23:26)
[2018-07-27] MEDS: INSULIN GLARGINE 100 UNIT/ML SUBCUT SCH (23:26)
[2018-07-28] MEDS: SODIUM CHLORIDE 0.9% 1,000 ML IV SCH ×3 (04:40→15:28)
[2018-07-28] MEDS: LORazepam 2 MG/1 ML VIAL IV PRN (04:43)
[2018-07-28 05:10] LABS: Basophils % 0.2 % (0.0-0.8); Hematocrit 40.4 VOL% (42.0-52.0); Hemoglobin 13.7 GM/DL (14.0-18.0); Immature Granulocytes Absolute 0.12 #; Lymphocytes # 1.8 10*3/uL (1.4-4.0); Lymphocytes % 15.1 % (21.2-54.2); Mean Corpuscular HGB Conc 33.9 GM/DL (32-36); Mean Corpuscular Hemoglobin 33 PG (27-34); Mean Corpuscular Volume 97.1 FL (87-102); Mean Platelet Volume 9.7 FL (9.6-12.0); Monocytes # 1.9 10*3/uL (0.11-0.8); Monocytes % 16.2 % (1.7-12.7); Neutrophils # 7.9 10*3/uL (1.4-7.4); Neutrophils % 67.5 % (38.7-73.9); Platelet Count 153 T/CUMM (130-400); Red Blood Count 4.16 MC/CUMM (3.8-5.5); Red Cell Distribution Width 12.9 % (9.3-17.3); White Blood Count 11.8 T/CUMM (4-12)
[2018-07-28 05:39] LABS: Calcium 8.8 MG/DL (8.5-10.1); Osmolality,Calculated 261.9 MOS/KG (273-304); Potassium 3.9 MMOL/L (3.5-5.1)
[2018-07-28 05:41] LABS: Lymphocytes 10 % (20-55); Segmented Neutrophils 83 % (50-85); Total Cells Counted 100
[2018-07-28 05:42] LABS: Platelet Estimate Adequate; Polychromasia Few
[2018-07-28 05:43] LABS: Troponin I 0.027 NG/ML (0.00-0.045)
[2018-07-28] MEDS: INSULIN LISPRO 100 UNIT/ML SUBCUT SCH ×7 (08:09→22:10)
[2018-07-28] MEDS: MULTIVITAMIN (CENTRUM) TABLET PO SCH (09:00)
[2018-07-28] MEDS: GABAPENTIN 300 MG CAPSULE PO SCH (09:00)
[2018-07-28] MEDS ORDERED: PANTOPRAZOLE 40 MG TABLET PO SCH (09:00)
[2018-07-28] MEDS: MAGNESIUM OXIDE 400 MG TABLET PO SCH ×2 (09:00→22:10)
[2018-07-28] MEDS: LISINOPRIL 20 MG TABLET PO SCH ×2 (09:00→22:10)
[2018-07-28] MEDS: DOCUSATE SODIUM 100 MG CAPSULE PO SCH ×2 (09:00→22:11)
[2018-07-28] MEDS: DULoxetine 30 MG CAPSULE PO SCH (09:00)
[2018-07-28] MEDS: ASPIRIN CHEW 81 MG TABLET PO SCH (09:00)
[2018-07-28] MEDS: PANTOPRAZOLE 40 MG TABLET PO SCH (09:01)
[2018-07-28] MEDS: METOPROLOL TARTRATE 100 MG TABLET PO SCH ×2 (09:01→22:09)
[2018-07-28] MEDS: glyBURIDE 5 MG TABLET PO SCH ×2 (09:01→22:09)
[2018-07-28] MEDS: sitaGLIPtin 100 MG TABLET PO SCH (09:01)
[2018-07-28] MEDS: FERROUS SULFATE 325 MG TABLET PO SCH (09:01)
[2018-07-28] MEDS: ATORVASTATIN 20 MG TABLET PO SCH (09:01)
[2018-07-28] MEDS: POTASSIUM CHLORIDE 20 MEQ TABLET PO PRN (09:01)
[2018-07-28] MEDS: ENOXAPARIN 40 MG/0.4 ML SYRINGE SUBCUT SCH (09:03)
[2018-07-28] MEDS: CLORAZEPATE 7.5 MG TABLET PO SCH ×3 (09:03→22:09)
[2018-07-28] MEDS: THIAMINE 200 MG/2 ML VIAL IM SCH (09:03)
[2018-07-28 12:14] LABS: Folate 4.7 NG/ML (5.4-24.0)
[2018-07-28] MEDS: MULTIVITAMIN INJ 10 ML in SODIUM CHLORIDE 0.9% 1,000 ML IV SCH (12:57)
[2018-07-28] MEDS: FOLIC ACID 1 MG TABLET PO SCH (22:09)
[2018-07-28] MEDS: INSULIN GLARGINE 100 UNIT/ML SUBCUT SCH (22:10)
[2018-07-28] MEDS: GABAPENTIN 600 MG TABLET PO SCH (22:10)
[2018-07-28] MEDS: dilTIAZem Drip 125 MG/125 ML PREMIX IV SCH (22:11)
[2018-07-29] MEDS: SODIUM CHLORIDE 0.9% 1,000 ML IV SCH ×3 (01:40→15:55)
[2018-07-29 04:06] LABS: Basophils % 0.3 % (0.0-0.8); Eosinophils # 0.1 10*3/uL (0.0-0.87); Eosinophils % 0.6 % (0.00-10.9); Hemoglobin 12.8 GM/DL (14.0-18.0); Immature Granulocytes % 1.3 %; Immature Granulocytes Absolute 0.12 #; Lymphocytes # 2.5 10*3/uL (1.4-4.0); Lymphocytes % 26.1 % (21.2-54.2); Mean Corpuscular HGB Conc 32.8 GM/DL (32-36); Mean Corpuscular Hemoglobin 33 PG (27-34); Mean Corpuscular Volume 99.5 FL (87-102); Mean Platelet Volume 9.7 FL (9.6-12.0); Monocytes # 1.4 10*3/uL (0.11-0.8); Monocytes % 14.5 % (1.7-12.7); Neutrophils # 5.5 10*3/uL (1.4-7.4); Neutrophils % 57.2 % (38.7-73.9); Platelet Count 153 T/CUMM (130-400); Red Blood Count 3.92 MC/CUMM (3.8-5.5); Red Cell Distribution Width 13.1 % (9.3-17.3); White Blood Count 9.6 T/CUMM (4-12)
[2018-07-29] MEDS: CLORAZEPATE 3.75 MG TABLET PO PRN (04:20)
[2018-07-29 04:28] LABS: Calcium 8.1 MG/DL (8.5-10.1); Osmolality,Calculated 271.8 MOS/KG (273-304); Potassium 3.7 MMOL/L (3.5-5.1)
[2018-07-29] MEDS: MAGNESIUM OXIDE 400 MG TABLET PO SCH ×2 (09:15→21:39)
[2018-07-29] MEDS: MULTIVITAMIN (CENTRUM) TABLET PO SCH (09:15)
[2018-07-29] MEDS: DULoxetine 30 MG CAPSULE PO SCH (09:15)
[2018-07-29] MEDS: DOCUSATE SODIUM 100 MG CAPSULE PO SCH ×2 (09:16→21:38)
[2018-07-29] MEDS: ASPIRIN CHEW 81 MG TABLET PO SCH (09:16)
[2018-07-29] MEDS: LISINOPRIL 20 MG TABLET PO SCH ×2 (09:16→21:38)
[2018-07-29] MEDS: glyBURIDE 5 MG TABLET PO SCH ×2 (09:16→21:39)
[2018-07-29] MEDS: ATORVASTATIN 20 MG TABLET PO SCH (09:17)
[2018-07-29] MEDS: sitaGLIPtin 100 MG TABLET PO SCH (09:17)
[2018-07-29] MEDS: PANTOPRAZOLE 40 MG TABLET PO SCH (09:17)
[2018-07-29] MEDS: GABAPENTIN 300 MG CAPSULE PO SCH (09:17)
[2018-07-29] MEDS: THIAMINE 200 MG/2 ML VIAL IM SCH (09:17)
[2018-07-29] MEDS: FERROUS SULFATE 325 MG TABLET PO SCH (09:17)
[2018-07-29] MEDS: METOPROLOL TARTRATE 100 MG TABLET PO SCH ×2 (09:17→21:39)
[2018-07-29] MEDS: INSULIN LISPRO 100 UNIT/ML SUBCUT SCH ×7 (09:18→21:39)
[2018-07-29] MEDS: ENOXAPARIN 40 MG/0.4 ML SYRINGE SUBCUT SCH (09:18)
[2018-07-29] MEDS: MULTIVITAMIN INJ 10 ML in SODIUM CHLORIDE 0.9% 1,000 ML IV SCH (09:19)
[2018-07-29] MEDS: CLORAZEPATE 7.5 MG TABLET PO SCH ×3 (09:21→21:38)
[2018-07-29] MEDS: GABAPENTIN 600 MG TABLET PO SCH (21:38)
[2018-07-29] MEDS: FOLIC ACID 1 MG TABLET PO SCH (21:38)
[2018-07-29] MEDS: dilTIAZem Drip 125 MG/125 ML PREMIX IV SCH (21:40)
[2018-07-29] MEDS: INSULIN GLARGINE 100 UNIT/ML SUBCUT SCH (21:40)
[2018-07-30 04:11] LABS: Basophils % 0.3 % (0.0-0.8); Eosinophils # 0.1 10*3/uL (0.0-0.87); Eosinophils % 1.1 % (0.00-10.9); Hematocrit 35.5 VOL% (42.0-52.0); Hemoglobin 11.9 GM/DL (14.0-18.0); Immature Granulocytes % 1.6 %; Lymphocytes # 1.5 10*3/uL (1.4-4.0); Lymphocytes % 24.4 % (21.2-54.2); Mean Corpuscular HGB Conc 33.5 GM/DL (32-36); Mean Corpuscular Hemoglobin 33 PG (27-34); Mean Corpuscular Volume 98.6 FL (87-102); Mean Platelet Volume 9.8 FL (9.6-12.0); Monocytes % 15.6 % (1.7-12.7); Neutrophils # 3.5 10*3/uL (1.4-7.4); Platelet Count 151 T/CUMM (130-400); White Blood Count 6.2 T/CUMM (4-12)
[2018-07-30 04:20] LABS: Calcium 8.3 MG/DL (8.5-10.1); Osmolality,Calculated 274.1 MOS/KG (273-304); Potassium 3.7 MMOL/L (3.5-5.1)
[2018-07-30 05:09] LABS: Anisocytosis 1+; Band Neutrophils 2 % (0-10); Eosinophils 2 % (0-10); Lymphocytes 25 % (20-55); Macrocytosis 1+; Metamyelocytes 1 %; Platelet Estimate Adequate; Polychromasia 2+; Segmented Neutrophils 56 % (50-85); Total Cells Counted 100
[2018-07-30] MEDS: SODIUM CHLORIDE 0.9% 1,000 ML IV SCH ×2 (09:14→16:07)
[2018-07-30] MEDS: ENOXAPARIN 40 MG/0.4 ML SYRINGE SUBCUT SCH (09:15)
[2018-07-30] MEDS: THIAMINE 200 MG/2 ML VIAL IM SCH (09:16)
[2018-07-30] MEDS: INSULIN LISPRO 100 UNIT/ML SUBCUT SCH ×7 (09:16→22:12)
[2018-07-30] MEDS: LISINOPRIL 20 MG TABLET PO SCH ×2 (09:17→22:05)
[2018-07-30] MEDS: METOPROLOL TARTRATE 100 MG TABLET PO SCH ×2 (09:17→22:05)
[2018-07-30] MEDS: ATORVASTATIN 20 MG TABLET PO SCH (09:17)
[2018-07-30] MEDS: DULoxetine 30 MG CAPSULE PO SCH (09:17)
[2018-07-30] MEDS: glyBURIDE 5 MG TABLET PO SCH ×2 (09:17→22:05)
[2018-07-30] MEDS: ASPIRIN CHEW 81 MG TABLET PO SCH (09:17)
[2018-07-30] MEDS: FERROUS SULFATE 325 MG TABLET PO SCH (09:18)
[2018-07-30] MEDS: MULTIVITAMIN (CENTRUM) TABLET PO SCH (09:18)
[2018-07-30] MEDS: MAGNESIUM OXIDE 400 MG TABLET PO SCH ×2 (09:18→22:05)
[2018-07-30] MEDS: PANTOPRAZOLE 40 MG TABLET PO SCH (09:18)
[2018-07-30] MEDS: GABAPENTIN 300 MG CAPSULE PO SCH (09:18)
[2018-07-30] MEDS: sitaGLIPtin 100 MG TABLET PO SCH (09:18)
[2018-07-30] MEDS: DOCUSATE SODIUM 100 MG CAPSULE PO SCH ×2 (09:18→22:04)
[2018-07-30] MEDS: MULTIVITAMIN INJ 10 ML in SODIUM CHLORIDE 0.9% 1,000 ML IV SCH (09:19)
[2018-07-30] MEDS: CLORAZEPATE 7.5 MG TABLET PO SCH ×3 (09:24→22:05)
[2018-07-30] MEDS: LORazepam 2 MG/1 ML VIAL IV PRN (10:32)
[2018-07-30] MEDS: INSULIN GLARGINE 100 UNIT/ML SUBCUT SCH (22:03)
[2018-07-30] MEDS: FOLIC ACID 1 MG TABLET PO SCH (22:04)
[2018-07-30] MEDS: GABAPENTIN 600 MG TABLET PO SCH (22:04)
[2018-07-30] MEDS: dilTIAZem Drip 125 MG/125 ML PREMIX IV SCH (22:17)
[2018-07-31] MEDS: SODIUM CHLORIDE 0.9% 1,000 ML IV SCH ×3 (03:49→17:03)
[2018-07-31 04:27] LABS: Basophils % 0.4 % (0.0-0.8); Eosinophils # 0.1 10*3/uL (0.0-0.87); Hemoglobin 11.6 GM/DL (14.0-18.0); Immature Granulocytes % 1.7 %; Immature Granulocytes Absolute 0.09 #; Lymphocytes # 1.2 10*3/uL (1.4-4.0); Lymphocytes % 23.6 % (21.2-54.2); Mean Corpuscular HGB Conc 33.1 GM/DL (32-36); Mean Corpuscular Hemoglobin 33 PG (27-34); Mean Corpuscular Volume 98.9 FL (87-102); Mean Platelet Volume 9.5 FL (9.6-12.0); Monocytes # 1.1 10*3/uL (0.11-0.8); Monocytes % 21.3 % (1.7-12.7); NRBC # 0.02 10*3/uL; Neutrophils # 2.7 10*3/uL (1.4-7.4); Platelet Count 151 T/CUMM (130-400); Red Blood Count 3.54 MC/CUMM (3.8-5.5); Red Cell Distribution Width 13.2 % (9.3-17.3); White Blood Count 5.2 T/CUMM (4-12)
[2018-07-31 04:45] LABS: Calcium 8.5 MG/DL (8.5-10.1); Osmolality,Calculated 280.1 MOS/KG (273-304); Potassium 3.2 MMOL/L (3.5-5.1)
[2018-07-31 05:13] LABS: Eosinophils 1 % (0-10); Lymphocytes 24 % (20-55); Platelet Estimate Decreased; Polychromasia Few; Segmented Neutrophils 65 % (50-85); Total Cells Counted 100
[2018-07-31] MEDS: ENOXAPARIN 40 MG/0.4 ML SYRINGE SUBCUT SCH (09:45)
[2018-07-31] MEDS: POTASSIUM CHLORIDE 20 MEQ TABLET PO PRN ×3 (09:45→23:40)
[2018-07-31] MEDS: LISINOPRIL 20 MG TABLET PO SCH ×2 (09:45→21:44)
[2018-07-31] MEDS: MULTIVITAMIN (CENTRUM) TABLET PO SCH (09:45)
[2018-07-31] MEDS: DULoxetine 30 MG CAPSULE PO SCH (09:45)
[2018-07-31] MEDS: GABAPENTIN 300 MG CAPSULE PO SCH (09:45)
[2018-07-31] MEDS: glyBURIDE 5 MG TABLET PO SCH ×2 (09:46→21:44)
[2018-07-31] MEDS: ASPIRIN CHEW 81 MG TABLET PO SCH (09:46)
[2018-07-31] MEDS: MAGNESIUM OXIDE 400 MG TABLET PO SCH ×2 (09:46→21:44)
[2018-07-31] MEDS: FERROUS SULFATE 325 MG TABLET PO SCH (09:46)
[2018-07-31] MEDS: MULTIVITAMIN INJ 10 ML in SODIUM CHLORIDE 0.9% 1,000 ML IV SCH (09:46)
[2018-07-31] MEDS: sitaGLIPtin 100 MG TABLET PO SCH (09:46)
[2018-07-31] MEDS: CLORAZEPATE 7.5 MG TABLET PO SCH ×3 (09:46→21:43)
[2018-07-31] MEDS: DOCUSATE SODIUM 100 MG CAPSULE PO SCH ×2 (09:46→21:44)
[2018-07-31] MEDS: METOPROLOL TARTRATE 100 MG TABLET PO SCH ×2 (09:46→21:44)
[2018-07-31] MEDS: ATORVASTATIN 20 MG TABLET PO SCH (09:46)
[2018-07-31] MEDS: PANTOPRAZOLE 40 MG TABLET PO SCH (09:47)
[2018-07-31] MEDS: INSULIN LISPRO 100 UNIT/ML SUBCUT SCH ×7 (09:47→21:45)
[2018-07-31] MEDS: GABAPENTIN 600 MG TABLET PO SCH (21:43)
[2018-07-31] MEDS: INSULIN GLARGINE 100 UNIT/ML SUBCUT SCH (21:43)
[2018-07-31] MEDS: FOLIC ACID 1 MG TABLET PO SCH (21:44)
[2018-08-01] MEDS: dilTIAZem Drip 125 MG/125 ML PREMIX IV SCH (00:25)
[2018-08-01] MEDS: POTASSIUM CHLORIDE 20 MEQ TABLET PO PRN (03:30)
[2018-08-01] MEDS: SODIUM CHLORIDE 0.9% 1,000 ML IV SCH ×2 (03:36→08:25)
[2018-08-01] MEDS: ENOXAPARIN 40 MG/0.4 ML SYRINGE SUBCUT SCH (08:23)
[2018-08-01] MEDS: INSULIN LISPRO 100 UNIT/ML SUBCUT SCH ×4 (08:23→12:44)
[2018-08-01] MEDS: GABAPENTIN 300 MG CAPSULE PO SCH (08:24)
[2018-08-01] MEDS: DOCUSATE SODIUM 100 MG CAPSULE PO SCH (08:24)
[2018-08-01] MEDS: sitaGLIPtin 100 MG TABLET PO SCH (08:24)
[2018-08-01] MEDS: DULoxetine 30 MG CAPSULE PO SCH (08:24)
[2018-08-01] MEDS: MAGNESIUM OXIDE 400 MG TABLET PO SCH (08:24)
[2018-08-01] MEDS: PANTOPRAZOLE 40 MG TABLET PO SCH (08:24)
[2018-08-01] MEDS: LISINOPRIL 20 MG TABLET PO SCH (08:24)
[2018-08-01] MEDS: METOPROLOL TARTRATE 100 MG TABLET PO SCH (08:24)
[2018-08-01] MEDS: MULTIVITAMIN (CENTRUM) TABLET PO SCH (08:24)
[2018-08-01] MEDS: CLORAZEPATE 7.5 MG TABLET PO SCH (08:24)
[2018-08-01] MEDS: FERROUS SULFATE 325 MG TABLET PO SCH (08:24)
[2018-08-01] MEDS: ASPIRIN CHEW 81 MG TABLET PO SCH (08:24)
[2018-08-01] MEDS: glyBURIDE 5 MG TABLET PO SCH (08:25)
[2018-08-01] MEDS: ATORVASTATIN 20 MG TABLET PO SCH (08:25)
[2018-08-01] MEDS: CLORAZEPATE 3.75 MG TABLET PO SCH ×2 (08:32→15:18)
[2018-08-01 12:43] VITALS: BP 132/89
== END 2018-08-01 16:19 | DRG 309 ==
LOC: N.TELES → OBSVTOIN 15:47
PROVIDERS: ADMIT Internal Medicine; ATTEND Internal Medicine

== ENCOUNTER 2018-11-23 16:12 | Inpatient (IN) ==
[2018-11-23] MEDS ORDERED: DEXTROSE 50% 25 GM/50 ML SYRINGE IV PRN (16:18)
[2018-11-23] MEDS ORDERED: GLUCAGON 1 MG VIAL IM PRN (16:18)
[2018-11-23] MEDS ORDERED: ONDANSETRON 4 MG/2 ML VIAL IV PRN (16:28)
[2018-11-23] MEDS ORDERED: ACETAMINOPHEN 325 MG TABLET PO PRN (16:30)
[2018-11-23 17:07] LABS: Basophils % 0.4 % (0.0-0.8); Hematocrit 43.5 VOL% (42.0-52.0); Hemoglobin 14.3 GM/DL (14.0-18.0); Immature Granulocytes % 0.5 %; Immature Granulocytes Absolute 0.04 #; Lymphocytes # 1.6 10*3/uL (1.4-4.0); Lymphocytes % 18.6 % (21.2-54.2); Mean Corpuscular HGB Conc 32.9 GM/DL (32-36); Mean Corpuscular Volume 100.2 FL (87-102); Mean Platelet Volume 10.6 FL (9.6-12.0); Monocytes % 9.4 % (1.7-12.7); Neutrophils % 71.1 % (38.7-73.9); Platelet Count 125 T/CUMM (130-400); Red Blood Count 4.34 MC/CUMM (3.8-5.5); Red Cell Distribution Width 14.4 % (9.3-17.3); White Blood Count 8.4 T/CUMM (4-12)
[2018-11-23 17:36] LABS: Albumin 2.8 G/DL (3.4-5.0); Bilirubin,Total 1.9 MG/DL (0.2-1.0); Calcium 8.8 MG/DL (8.5-10.1); Osmolality,Calculated 272.5 MOS/KG (273-304); Total Protein 7.7 G/DL (6.4-8.3)
[2018-11-23] MEDS: INSULIN LISPRO 100 UNIT/ML SUBCUT SCH ×2 (17:59→21:04)
[2018-11-23] MEDS: FOLIC ACID 1 MG TABLET PO SCH (18:00)
[2018-11-23] MEDS: CLORAZEPATE 7.5 MG TABLET PO SCH (18:00)
[2018-11-23] MEDS: THIAMINE 200 MG/2 ML VIAL IM SCH (18:00)
[2018-11-23] MEDS: SODIUM CHLORIDE 0.9% 1,000 ML IV SCH (18:00)
[2018-11-23] MEDS: PANTOPRAZOLE 40 MG TABLET PO SCH (18:00)
[2018-11-23] MEDS: ENOXAPARIN 40 MG/0.4 ML SYRINGE SUBCUT SCH (21:05)
[2018-11-23] MEDS: CLORAZEPATE 3.75 MG TABLET PO PRN (21:16)
[2018-11-24] MEDS: SODIUM CHLORIDE 0.9% 1,000 ML IV SCH ×3 (01:34→20:08)
[2018-11-24] MEDS: CLORAZEPATE 7.5 MG TABLET PO SCH ×5 (01:42→23:59)
[2018-11-24] MEDS: CLORAZEPATE 3.75 MG TABLET PO PRN ×3 (05:01→20:49)
[2018-11-24 05:40] LABS: Calcium 8.3 MG/DL (8.5-10.1); Osmolality,Calculated 269.4 MOS/KG (273-304)
[2018-11-24] MEDS: INSULIN LISPRO 100 UNIT/ML SUBCUT SCH ×6 (08:18→20:47)
[2018-11-24] MEDS: FOLIC ACID 1 MG TABLET PO SCH (08:18)
[2018-11-24] MEDS: PANTOPRAZOLE 40 MG TABLET PO SCH (08:18)
[2018-11-24] MEDS: THIAMINE 200 MG/2 ML VIAL IM SCH (08:19)
[2018-11-24] MEDS ORDERED: THIAMINE INJ 100 MG, FOLIC ACID INJ 1 MG, MULTIVITAMIN INJ 10 ML in SODIUM CHLORIDE 0.9... IV ONE (09:01)
[2018-11-24] MEDS: ASPIRIN CHEW 81 MG TABLET PO SCH (09:46)
[2018-11-24] MEDS: MULTIVITAMIN (CENTRUM) TABLET PO SCH (09:46)
[2018-11-24] MEDS: buPROPion SR 150 MG TABLET PO SCH (09:46)
[2018-11-24] MEDS: MAGNESIUM OXIDE 400 MG TABLET PO SCH ×2 (09:46→20:47)
[2018-11-24] MEDS: METOPROLOL TARTRATE 100 MG TABLET PO SCH ×2 (09:46→20:47)
[2018-11-24 10:24] LABS: Apearance,Urine CLEAR (Clear); Bilirubin,Urine Negative (Negative); Blood, Urine Negative (Negative); Glucose,Urine (UA) 150 mg/dL (Negative); Hyaline Casts,Urine 38 /LPF (0-3); Ketones,Urine 5 mg/dL (Negative); Mucus,Urine Occasional /LPF (Occasional); Nitrite,Urine Negative (Negative); Protein,Urine Negative; RBC,Urine <1 /HPF (0-4); Squamous Epithelial Cell,Urine Occasional /HPF (0-10); Urine Color Amber (Yellow); Urine Specific Gravity 1.018 (1.001-1.035); Urine Urobilinogen < 2.0 EU/DL (0.2-1.0); WBC,Urine 2 /HPF (0-6)
[2018-11-24 10:38] LABS: Barbiturates Screen,Urine Negative (Negative); Benzodiazepines Screen,Urine Positive (Negative); Cannabinoid Screen,Urine Negative (Negative); Opiate Screen,Urine Negative (Negative); Phencyclidine Screen,Urine Negative (Negative)
[2018-11-24 11:39] LABS: Albumin 2.5 G/DL (3.4-5.0); Bilirubin,Direct 1.14 MG/DL (0.0-0.20); Bilirubin,Indirect 0.9 MG/DL (0.0-1.0); Total Protein 6.6 G/DL (6.4-8.3)
[2018-11-24 12:31] LABS: Hepatitis B Core IgM Quant < 0.05 Index; Hepatitis B Surface Ag Quant < 0.10 Index; Hepatitis B Surface Ag Result Negative (Negative); Hepatitis C Virus Ab Quant 0.22 Index; Hepatitis C Virus Ab Result Negative (Negative)
[2018-11-24] MEDS: GABAPENTIN 300 MG CAPSULE PO SCH ×2 (14:49→20:46)
[2018-11-24] MEDS: ENOXAPARIN 40 MG/0.4 ML SYRINGE SUBCUT SCH (20:47)
[2018-11-24] MEDS: DULoxetine 30 MG CAPSULE PO SCH (20:47)
[2018-11-24] MEDS: INSULIN GLARGINE 100 UNIT/ML SUBCUT SCH (23:52)
[2018-11-25] MEDS: SODIUM CHLORIDE 0.9% 1,000 ML IV SCH ×3 (03:39→17:18)
[2018-11-25 04:32] LABS: Basophils % 0.2 % (0.0-0.8); Eosinophils % 0.4 % (0.00-10.9); Hematocrit 34.7 VOL% (42.0-52.0); Hemoglobin 11.1 GM/DL (14.0-18.0); Immature Granulocytes % 0.6 %; Immature Granulocytes Absolute 0.03 #; Lymphocytes # 1.7 10*3/uL (1.4-4.0); Mean Corpuscular Volume 101.8 FL (87-102); Mean Platelet Volume 10.9 FL (9.6-12.0); Monocytes % 11.1 % (1.7-12.7); Neutrophils % 56.7 % (38.7-73.9); Platelet Count 77 T/CUMM (130-400); Red Blood Count 3.41 MC/CUMM (3.8-5.5); Red Cell Distribution Width 14.6 % (9.3-17.3); White Blood Count 5.3 T/CUMM (4-12)
[2018-11-25 04:58] LABS: Calcium 7.5 MG/DL (8.5-10.1)
[2018-11-25 05:17] LABS: Band Neutrophils 5 % (0-10); Eosinophils 1 % (0-10); Lymphocytes 29 % (20-55); Segmented Neutrophils 60 % (50-85); Total Cells Counted 100
[2018-11-25 05:19] LABS: Anisocytosis 1+; Hypochromasia 1+; Platelet Estimate Decreased
[2018-11-25] MEDS: CLORAZEPATE 7.5 MG TABLET PO SCH ×3 (07:19→17:12)
[2018-11-25] MEDS: DEXTROSE 50% 25 GM/50 ML SYRINGE IV PRN (07:20)
[2018-11-25] MEDS: INSULIN LISPRO 100 UNIT/ML SUBCUT SCH ×7 (08:42→21:15)
[2018-11-25] MEDS ORDERED: PROPOFOL 200 MG/20 ML VIAL IV ONE (09:00)
[2018-11-25] MEDS ORDERED: LIDOCAINE 2% 5 ML VIAL ONE (09:00)
[2018-11-25] MEDS: PANTOPRAZOLE 40 MG TABLET PO SCH ×2 (13:56→21:17)
[2018-11-25] MEDS: GABAPENTIN 300 MG CAPSULE PO SCH ×3 (13:58→21:10)
[2018-11-25] MEDS: buPROPion SR 150 MG TABLET PO SCH (14:30)
[2018-11-25] MEDS: ASPIRIN CHEW 81 MG TABLET PO SCH (14:30)
[2018-11-25] MEDS: METOPROLOL TARTRATE 100 MG TABLET PO SCH ×2 (14:30→21:11)
[2018-11-25] MEDS: FOLIC ACID 1 MG TABLET PO SCH (14:30)
[2018-11-25] MEDS: MULTIVITAMIN (CENTRUM) TABLET PO SCH (14:30)
[2018-11-25] MEDS: MAGNESIUM OXIDE 400 MG TABLET PO SCH ×2 (14:31→21:11)
[2018-11-25] MEDS: THIAMINE 200 MG/2 ML VIAL IM SCH (14:31)
[2018-11-25] MEDS: DULoxetine 30 MG CAPSULE PO SCH (21:10)
[2018-11-25] MEDS: CLORAZEPATE 3.75 MG TABLET PO PRN (21:11)
[2018-11-25] MEDS: INSULIN GLARGINE 100 UNIT/ML SUBCUT SCH (21:15)
[2018-11-26] MEDS: SODIUM CHLORIDE 0.9% 1,000 ML IV SCH ×2 (00:46→08:50)
[2018-11-26 04:45] LABS: Basophils % 0.2 % (0.0-0.8); Eosinophils # 0.1 10*3/uL (0.0-0.87); Eosinophils % 1.9 % (0.00-10.9); Hematocrit 35.3 VOL% (42.0-52.0); Immature Granulocytes % 0.9 %; Immature Granulocytes Absolute 0.04 #; Lymphocytes # 1.4 10*3/uL (1.4-4.0); Lymphocytes % 29.6 % (21.2-54.2); Mean Corpuscular HGB Conc 31.2 GM/DL (32-36); Mean Corpuscular Volume 105.7 FL (87-102); Mean Platelet Volume 11.6 FL (9.6-12.0); Monocytes % 10.1 % (1.7-12.7); Neutrophils % 57.3 % (38.7-73.9); Platelet Count 65 T/CUMM (130-400); Red Blood Count 3.34 MC/CUMM (3.8-5.5); Red Cell Distribution Width 14.8 % (9.3-17.3); White Blood Count 4.7 T/CUMM (4-12)
[2018-11-26 05:04] LABS: Albumin 2.2 G/DL (3.4-5.0); Bilirubin,Total 2.6 MG/DL (0.2-1.0); Calcium 7.4 MG/DL (8.5-10.1); Osmolality,Calculated 268.8 MOS/KG (273-304); Total Protein 5.8 G/DL (6.4-8.3)
[2018-11-26] MEDS: CLORAZEPATE 7.5 MG TABLET PO SCH ×3 (05:45→22:18)
[2018-11-26] MEDS: DEXTROSE 50% 25 GM/50 ML SYRINGE IV PRN (05:47)
[2018-11-26 06:17] LABS: Anisocytosis 1+; Hypochromasia 1+
[2018-11-26 06:18] LABS: Platelet Estimate Decreased
[2018-11-26] MEDS: INSULIN LISPRO 100 UNIT/ML SUBCUT SCH ×5 (07:46→21:10)
[2018-11-26] MEDS: METOPROLOL TARTRATE 100 MG TABLET PO SCH ×2 (08:18→20:00)
[2018-11-26] MEDS: buPROPion SR 150 MG TABLET PO SCH (08:19)
[2018-11-26] MEDS: GABAPENTIN 300 MG CAPSULE PO SCH ×3 (08:19→20:00)
[2018-11-26] MEDS: MAGNESIUM OXIDE 400 MG TABLET PO SCH ×2 (08:19→20:00)
[2018-11-26] MEDS: FOLIC ACID 1 MG TABLET PO SCH (08:19)
[2018-11-26] MEDS: PANTOPRAZOLE 40 MG TABLET PO SCH ×2 (08:19→20:00)
[2018-11-26] MEDS: MULTIVITAMIN (CENTRUM) TABLET PO SCH (08:19)
[2018-11-26] MEDS: ASPIRIN CHEW 81 MG TABLET PO SCH (08:19)
[2018-11-26] MEDS: THIAMINE 200 MG/2 ML VIAL IM SCH (08:20)
[2018-11-26] MEDS: CLORAZEPATE 3.75 MG TABLET PO PRN ×2 (08:56→19:59)
[2018-11-26] MEDS: DULoxetine 30 MG CAPSULE PO SCH (20:00)
[2018-11-26] MEDS: INSULIN GLARGINE 100 UNIT/ML SUBCUT SCH (21:10)
[2018-11-27] MEDS: CLORAZEPATE 7.5 MG TABLET PO SCH ×4 (05:59→22:17)
[2018-11-27] MEDS: MULTIVITAMIN (CENTRUM) TABLET PO SCH (10:18)
[2018-11-27] MEDS: ASPIRIN CHEW 81 MG TABLET PO SCH (10:18)
[2018-11-27] MEDS: GABAPENTIN 300 MG CAPSULE PO SCH ×3 (10:18→20:31)
[2018-11-27] MEDS: FOLIC ACID 1 MG TABLET PO SCH (10:18)
[2018-11-27] MEDS: buPROPion SR 150 MG TABLET PO SCH (10:18)
[2018-11-27] MEDS: MAGNESIUM OXIDE 400 MG TABLET PO SCH ×2 (10:18→20:31)
[2018-11-27] MEDS: PANTOPRAZOLE 40 MG TABLET PO SCH ×2 (10:18→20:31)
[2018-11-27] MEDS: INSULIN LISPRO 100 UNIT/ML SUBCUT SCH ×4 (10:25→20:32)
[2018-11-27] MEDS: METOPROLOL TARTRATE 100 MG TABLET PO SCH ×2 (10:29→20:31)
[2018-11-27] MEDS: THIAMINE 200 MG/2 ML VIAL IM SCH (10:29)
[2018-11-27] MEDS: THIAMINE 100 MG TABLET PO SCH (10:40)
[2018-11-27] MEDS: LISINOPRIL 20 MG TABLET PO SCH ×2 (10:40→20:30)
[2018-11-27 11:27] LABS: Albumin 2.2 G/DL (3.4-5.0); Bilirubin,Total 3.1 MG/DL (0.2-1.0); Calcium 7.6 MG/DL (8.5-10.1); Osmolality,Calculated 268.1 MOS/KG (273-304)
[2018-11-27] MEDS: DULoxetine 30 MG CAPSULE PO SCH (20:30)
[2018-11-27] MEDS: INSULIN GLARGINE 100 UNIT/ML SUBCUT SCH (20:32)
[2018-11-28] MEDS: CLORAZEPATE 3.75 MG TABLET PO PRN (02:19)
[2018-11-28 05:23] LABS: Albumin 2.1 G/DL (3.4-5.0); Bilirubin,Total 3.2 MG/DL (0.2-1.0); Calcium 7.8 MG/DL (8.5-10.1); Osmolality,Calculated 270.8 MOS/KG (273-304); Total Protein 5.8 G/DL (6.4-8.3)
[2018-11-28] MEDS: CLORAZEPATE 7.5 MG TABLET PO SCH ×3 (05:41→21:34)
[2018-11-28] MEDS: INSULIN LISPRO 100 UNIT/ML SUBCUT SCH ×4 (08:16→21:29)
[2018-11-28] MEDS: THIAMINE 100 MG TABLET PO SCH (09:54)
[2018-11-28] MEDS: buPROPion SR 150 MG TABLET PO SCH (09:54)
[2018-11-28] MEDS: LISINOPRIL 20 MG TABLET PO SCH ×2 (09:54→21:34)
[2018-11-28] MEDS: FOLIC ACID 1 MG TABLET PO SCH (09:54)
[2018-11-28] MEDS: GABAPENTIN 300 MG CAPSULE PO SCH ×3 (09:54→21:34)
[2018-11-28] MEDS: MULTIVITAMIN (CENTRUM) TABLET PO SCH (09:54)
[2018-11-28] MEDS: METOPROLOL TARTRATE 100 MG TABLET PO SCH ×2 (09:54→21:34)
[2018-11-28] MEDS: MAGNESIUM OXIDE 400 MG TABLET PO SCH ×2 (09:55→21:34)
[2018-11-28] MEDS: PANTOPRAZOLE 40 MG TABLET PO SCH ×2 (09:55→21:35)
[2018-11-28] MEDS: ASPIRIN CHEW 81 MG TABLET PO SCH (09:55)
[2018-11-28] MEDS: amLODIPine 5 MG TABLET PO SCH (16:41)
[2018-11-28] MEDS: DULoxetine 30 MG CAPSULE PO SCH (21:34)
[2018-11-28] MEDS: INSULIN GLARGINE 100 UNIT/ML SUBCUT SCH (21:35)
[2018-11-29] MEDS: CLORAZEPATE 7.5 MG TABLET PO SCH (05:11)
[2018-11-29] MEDS: GABAPENTIN 300 MG CAPSULE PO SCH (09:01)
[2018-11-29] MEDS: METOPROLOL TARTRATE 100 MG TABLET PO SCH (09:01)
[2018-11-29] MEDS: amLODIPine 5 MG TABLET PO SCH (09:01)
[2018-11-29] MEDS: buPROPion SR 150 MG TABLET PO SCH (09:01)
[2018-11-29] MEDS: LISINOPRIL 20 MG TABLET PO SCH (09:01)
[2018-11-29] MEDS: THIAMINE 100 MG TABLET PO SCH (09:01)
[2018-11-29] MEDS: MULTIVITAMIN (CENTRUM) TABLET PO SCH (09:01)
[2018-11-29] MEDS: PANTOPRAZOLE 40 MG TABLET PO SCH (09:01)
[2018-11-29] MEDS: MAGNESIUM OXIDE 400 MG TABLET PO SCH (09:02)
[2018-11-29] MEDS: ASPIRIN CHEW 81 MG TABLET PO SCH (09:02)
[2018-11-29] MEDS: FOLIC ACID 1 MG TABLET PO SCH (09:02)
[2018-11-29] MEDS: INSULIN LISPRO 100 UNIT/ML SUBCUT SCH ×3 (09:15→12:58)
[2018-11-29 12:05] VITALS: BP 156/79
== END 2018-11-29 14:44 | DRG 897 ==
LOC: N.4E 16:32
PROVIDERS: ADMIT Internal Medicine; ATTEND Internal Medicine

== ENCOUNTER 2019-01-09 20:20 | Inpatient (IN) ==
[2019-01-09] MEDS ORDERED: SODIUM CHLORIDE 0.9% 500 ML IV STA (20:50)
[2019-01-09 21:24] LABS: Basophils % 0.4 % (0.0-0.8); Eosinophils % 0.4 % (0.00-10.9); Hematocrit 42.5 VOL% (42.0-52.0); Hemoglobin 13.6 GM/DL (14.0-18.0); Immature Granulocytes % 0.4 %; Immature Granulocytes Absolute 0.01 #; Lymphocytes # 0.7 10*3/uL (1.4-4.0); Lymphocytes % 26.3 % (21.2-54.2); Mean Corpuscular Volume 102.4 FL (87-102); Mean Platelet Volume 10.1 FL (9.6-12.0); Monocytes % 9.3 % (1.7-12.7); Neutrophils % 63.2 % (38.7-73.9); Platelet Count 181 T/CUMM (130-400); Red Blood Count 4.15 MC/CUMM (3.8-5.5); Red Cell Distribution Width 12.5 % (9.3-17.3); White Blood Count 2.7 T/CUMM (4-12)
[2019-01-09 21:35] LABS: INR 1.1; PT Patient Result 12.3 SECS
[2019-01-09 21:49] LABS: Alanine Aminotransferase 51 U/L (16-61); Albumin 2.7 G/DL (3.4-5.0); Alkaline Phosphatase 92 U/L (45-117); Aspartate Amino Transferase 43 U/L (0-37); Blood Urea Nitrogen 21 MG/DL (7-18); Calcium 8.6 MG/DL (8.5-10.1); Osmolality,Calculated 284.8 MOS/KG (273-304); Total Protein 7.4 G/DL (6.4-8.3)
[2019-01-09 21:51] LABS: Glucose 35 MG/DL (74-106)
[2019-01-09] MEDS ORDERED: DEXTROSE 50% 25 GM/50 ML VIAL IV STA (21:51)
[2019-01-09 21:56] LABS: Band Neutrophils 10 % (0-10); Eosinophils 1 % (0-10); Lymphocytes 27 % (20-55); Segmented Neutrophils 55 % (50-85); Total Cells Counted 100
[2019-01-09 21:57] LABS: Macrocytosis 1+; Platelet Estimate Normal; Polychromasia 1+
[2019-01-09] MEDS ORDERED: DEXTROSE 10% 1,000 ML IV SCH (22:00)
[2019-01-09 22:03] LABS: Apearance,Urine CLEAR (Clear); Bacteria,Urine Occasional /HPF (Few); Bilirubin,Urine Negative (Negative); Blood, Urine Negative (Negative); Glucose,Urine (UA) 50 mg/dL (Negative); Hyaline Casts,Urine 33 /LPF (0-3); Ketones,Urine Negative (Negative); Mucus,Urine Occasional /LPF (Occasional); Nitrite,Urine Negative (Negative); Protein,Urine Negative; RBC,Urine 2 /HPF (0-4); Squamous Epithelial Cell,Urine Occasional /HPF (0-10); Urine Color Yellow (Yellow); Urine Specific Gravity 1.013 (1.001-1.035); Urine Urobilinogen < 2.0 EU/DL (<2.0); WBC,Urine 1 /HPF (0-6)
[2019-01-09] MEDS ORDERED: MAGNESIUM SULF RIDER 2 GM in PREMIX 1 EACH IV STA (22:23)
[2019-01-09] MEDS ORDERED: cefTRIAXone 1,000 MG in SODIUM CHLORIDE 0.9% 100 ML IV STA (22:24)
[2019-01-10] MEDS ORDERED: ALBUTEROL/IPRATROPIUM 3 ML NEB RESP TX PRN (00:25)
[2019-01-10] MEDS ORDERED: GLUCAGON 1 MG VIAL IM PRN (00:25)
[2019-01-10] MEDS ORDERED: ONDANSETRON 4 MG/2 ML VIAL IV PRN (00:25)
[2019-01-10] MEDS ORDERED: ACETAMINOPHEN 325 MG TABLET PO PRN (00:25)
[2019-01-10] MEDS ORDERED: DEXTROSE 50% 25 GM/50 ML VIAL IV PRN (00:25)
[2019-01-10] MEDS: DEXTROSE 10% 1,000 ML IV SCH ×2 (00:41→10:38)
[2019-01-10] MEDS: INSULIN REGULAR 100 UNIT/ML SUBCUT SCH ×5 (00:42→23:09)
[2019-01-10 00:55] LABS: Barbiturates Screen,Urine Negative (Negative); Benzodiazepines Screen,Urine Positive (Negative); Cannabinoid Screen,Urine Negative (Negative); Opiate Screen,Urine Negative (Negative); Phencyclidine Screen,Urine Negative (Negative)
[2019-01-10] MEDS: PIPERACILLIN/TAZOBACTAM 3,375 MG in SODIUM CHLORIDE 0.9% 100 ML IV SCH ×3 (02:57→17:50)
[2019-01-10 03:15] LABS: Basophils % 0.3 % (0.0-0.8); Hematocrit 35.5 VOL% (42.0-52.0); Hemoglobin 11.8 GM/DL (14.0-18.0); Immature Granulocytes % 0.8 %; Immature Granulocytes Absolute 0.05 #; Lymphocytes # 1.3 10*3/uL (1.4-4.0); Lymphocytes % 21.6 % (21.2-54.2); Mean Corpuscular HGB Conc 33.2 GM/DL (32-36); Mean Corpuscular Volume 100.6 FL (87-102); Mean Platelet Volume 10.6 FL (9.6-12.0); Monocytes % 9.7 % (1.7-12.7); Neutrophils % 67.6 % (38.7-73.9); Platelet Count 132 T/CUMM (130-400); Red Blood Count 3.53 MC/CUMM (3.8-5.5); Red Cell Distribution Width 12.7 % (9.3-17.3); White Blood Count 6.1 T/CUMM (4-12)
[2019-01-10 03:20] LABS: Albumin 2.2 G/DL (3.4-5.0); Bilirubin,Total 0.9 MG/DL (0.2-1.0); Calcium 8.1 MG/DL (8.5-10.1); Total Protein 6.1 G/DL (6.4-8.3)
[2019-01-10 04:57] LABS: Anisocytosis 1+; Band Neutrophils 4 % (0-10); Lymphocytes 31 % (20-55); Platelet Estimate Decreased; Segmented Neutrophils 63 % (50-85); Total Cells Counted 100
[2019-01-10] MEDS ORDERED: PANTOPRAZOLE 40 MG TABLET PO SCH (09:00)
[2019-01-10] MEDS ORDERED: PANTOPRAZOLE 40 MG VIAL IV SCH (09:00)
[2019-01-10] MEDS: ASPIRIN CHEW 81 MG TABLET PO SCH (09:13)
[2019-01-10] MEDS: POTASSIUM CHLORIDE 8 MEQ CAPSULE PO SCH (09:13)
[2019-01-10] MEDS: LACTULOSE 20 GM/30 ML UDCUP PO SCH (09:13)
[2019-01-10] MEDS: MULTIVITAMIN (CENTRUM) TABLET PO SCH (09:13)
[2019-01-10] MEDS: buPROPion SR 150 MG TABLET PO SCH ×2 (09:13→20:14)
[2019-01-10] MEDS: FUROSEMIDE 40 MG TABLET PO SCH (09:13)
[2019-01-10] MEDS: FOLIC ACID 1 MG TABLET PO SCH (09:14)
[2019-01-10] MEDS: GABAPENTIN 300 MG CAPSULE PO SCH ×3 (09:14→20:12)
[2019-01-10] MEDS: PANTOPRAZOLE 40 MG TABLET PO SCH ×2 (09:14→20:12)
[2019-01-10] MEDS: METOPROLOL TARTRATE 100 MG TABLET PO SCH ×2 (09:14→20:12)
[2019-01-10] MEDS: DOCUSATE SODIUM 100 MG CAPSULE PO SCH ×2 (09:14→20:14)
[2019-01-10] MEDS: DEXTROSE 5% 1,000 ML IV SCH (17:50)
[2019-01-10] MEDS: LORazepam 1 MG TABLET PO PRN (20:12)
[2019-01-10] MEDS: DULoxetine 30 MG CAPSULE PO SCH (20:12)
[2019-01-11] MEDS: PIPERACILLIN/TAZOBACTAM 3,375 MG in SODIUM CHLORIDE 0.9% 100 ML IV SCH ×3 (03:01→17:54)
[2019-01-11 05:20] LABS: Basophils # 0.1 10*3/uL (0.0-0.2); Basophils % 0.5 % (0.0-0.8); Eosinophils # 0.2 10*3/uL (0.0-0.87); Eosinophils % 1.2 % (0.00-10.9); Hematocrit 38.3 VOL% (42.0-52.0); Hemoglobin 12.6 GM/DL (14.0-18.0); Immature Granulocytes % 2.2 %; Immature Granulocytes Absolute 0.29 #; Lymphocytes # 2.2 10*3/uL (1.4-4.0); Lymphocytes % 16.8 % (21.2-54.2); Mean Corpuscular HGB Conc 32.9 GM/DL (32-36); Mean Corpuscular Volume 101.3 FL (87-102); Mean Platelet Volume 10.8 FL (9.6-12.0); Monocytes % 8.4 % (1.7-12.7); Neutrophils % 70.9 % (38.7-73.9); Platelet Count 149 T/CUMM (130-400); Red Blood Count 3.78 MC/CUMM (3.8-5.5); Red Cell Distribution Width 12.6 % (9.3-17.3)
[2019-01-11 05:46] LABS: Band Neutrophils 10 % (0-10); Eosinophils 1 % (0-10); Hypochromasia 1+; Lymphocytes 19 % (20-55); Platelet Estimate Adequate; Segmented Neutrophils 61 % (50-85); Total Cells Counted 100
[2019-01-11 05:56] LABS: Calcium 8.6 MG/DL (8.5-10.1); Osmolality,Calculated 284.8 MOS/KG (273-304)
[2019-01-11] MEDS: INSULIN REGULAR 100 UNIT/ML SUBCUT SCH (06:19)
[2019-01-11] MEDS: LEVOTHYROXINE 25 MCG TABLET PO SCH (06:20)
[2019-01-11] MEDS: FOLIC ACID 1 MG TABLET PO SCH (08:18)
[2019-01-11] MEDS: FUROSEMIDE 40 MG TABLET PO SCH (08:19)
[2019-01-11] MEDS: PANTOPRAZOLE 40 MG TABLET PO SCH ×2 (08:19→20:45)
[2019-01-11] MEDS: POTASSIUM CHLORIDE 8 MEQ CAPSULE PO SCH ×3 (08:19→20:45)
[2019-01-11] MEDS: buPROPion SR 150 MG TABLET PO SCH ×2 (08:19→20:45)
[2019-01-11] MEDS: GABAPENTIN 300 MG CAPSULE PO SCH ×3 (08:19→20:45)
[2019-01-11] MEDS: ASPIRIN CHEW 81 MG TABLET PO SCH (08:19)
[2019-01-11] MEDS: MULTIVITAMIN (CENTRUM) TABLET PO SCH (08:19)
[2019-01-11] MEDS: METOPROLOL TARTRATE 100 MG TABLET PO SCH ×2 (08:20→20:45)
[2019-01-11] MEDS: DOCUSATE SODIUM 100 MG CAPSULE PO SCH ×2 (08:34→20:45)
[2019-01-11] MEDS: LACTULOSE 20 GM/30 ML UDCUP PO SCH (08:34)
[2019-01-11] MEDS: INSULIN LISPRO 100 UNIT/ML SUBCUT SCH ×3 (11:05→21:10)
[2019-01-11] MEDS: LORazepam 1 MG TABLET PO PRN (13:18)
[2019-01-11] MEDS: DEXTROSE 5% 1,000 ML IV SCH (13:56)
[2019-01-11] MEDS: DULoxetine 30 MG CAPSULE PO SCH (20:45)
[2019-01-11] MEDS: NICOTINE 14 MG/24 HR PATCH TRANSDERM SCH (21:25)
[2019-01-11] MEDS: SODIUM CHLORIDE 0.9% 1,000 ML IV SCH (21:25)
[2019-01-12] MEDS: PIPERACILLIN/TAZOBACTAM 3,375 MG in SODIUM CHLORIDE 0.9% 100 ML IV SCH ×3 (01:38→18:10)
[2019-01-12 04:50] LABS: Basophils % 0.2 % (0.0-0.8); Eosinophils # 0.3 10*3/uL (0.0-0.87); Eosinophils % 2.8 % (0.00-10.9); Hematocrit 37.3 VOL% (42.0-52.0); Hemoglobin 12.4 GM/DL (14.0-18.0); Immature Granulocytes % 1.4 %; Immature Granulocytes Absolute 0.14 #; Lymphocytes # 2.5 10*3/uL (1.4-4.0); Lymphocytes % 24.5 % (21.2-54.2); Mean Corpuscular HGB Conc 33.2 GM/DL (32-36); Mean Corpuscular Volume 99.2 FL (87-102); Mean Platelet Volume 10.7 FL (9.6-12.0); Monocytes % 6.4 % (1.7-12.7); Neutrophils % 64.7 % (38.7-73.9); Platelet Count 154 T/CUMM (130-400); Red Blood Count 3.76 MC/CUMM (3.8-5.5); Red Cell Distribution Width 12.4 % (9.3-17.3); White Blood Count 10.4 T/CUMM (4-12)
[2019-01-12 05:20] LABS: Calcium 8.2 MG/DL (8.5-10.1); Osmolality,Calculated 283.4 MOS/KG (273-304)
[2019-01-12] MEDS: LEVOTHYROXINE 25 MCG TABLET PO SCH (06:14)
[2019-01-12] MEDS: MULTIVITAMIN (CENTRUM) TABLET PO SCH (10:05)
[2019-01-12] MEDS: DOCUSATE SODIUM 100 MG CAPSULE PO SCH ×2 (10:05→20:36)
[2019-01-12] MEDS: ASPIRIN CHEW 81 MG TABLET PO SCH (10:06)
[2019-01-12] MEDS: FUROSEMIDE 40 MG TABLET PO SCH (10:06)
[2019-01-12] MEDS: GABAPENTIN 300 MG CAPSULE PO SCH ×3 (10:06→20:37)
[2019-01-12] MEDS: PANTOPRAZOLE 40 MG TABLET PO SCH ×2 (10:06→20:36)
[2019-01-12] MEDS: FOLIC ACID 1 MG TABLET PO SCH (10:06)
[2019-01-12] MEDS: METOPROLOL TARTRATE 100 MG TABLET PO SCH ×2 (10:06→20:36)
[2019-01-12] MEDS: POTASSIUM CHLORIDE 8 MEQ CAPSULE PO SCH ×2 (10:07→20:37)
[2019-01-12] MEDS: ENOXAPARIN 40 MG/0.4 ML SYRINGE SUBCUT SCH (10:07)
[2019-01-12] MEDS: INSULIN LISPRO 100 UNIT/ML SUBCUT SCH ×4 (10:07→20:37)
[2019-01-12] MEDS: LACTULOSE 20 GM/30 ML UDCUP PO SCH (10:07)
[2019-01-12] MEDS: buPROPion SR 150 MG TABLET PO SCH ×2 (10:09→20:37)
[2019-01-12] MEDS: NICOTINE 14 MG/24 HR PATCH TRANSDERM SCH (10:12)
[2019-01-12] MEDS: LORazepam 1 MG TABLET PO PRN (13:00)
[2019-01-12] MEDS: SODIUM CHLORIDE 0.9% 1,000 ML IV SCH (17:05)
[2019-01-12] MEDS: DULoxetine 30 MG CAPSULE PO SCH (20:36)
[2019-01-13] MEDS: PIPERACILLIN/TAZOBACTAM 3,375 MG in SODIUM CHLORIDE 0.9% 100 ML IV SCH ×3 (01:06→17:29)
[2019-01-13 04:41] LABS: Basophils % 0.2 % (0.0-0.8); Eosinophils # 0.3 10*3/uL (0.0-0.87); Eosinophils % 2.9 % (0.00-10.9); Hematocrit 38.2 VOL% (42.0-52.0); Hemoglobin 12.2 GM/DL (14.0-18.0); Immature Granulocytes % 0.6 %; Immature Granulocytes Absolute 0.06 #; Lymphocytes # 2.5 10*3/uL (1.4-4.0); Lymphocytes % 26.3 % (21.2-54.2); Mean Corpuscular HGB Conc 31.9 GM/DL (32-36); Mean Platelet Volume 10.6 FL (9.6-12.0); Monocytes % 10.6 % (1.7-12.7); Neutrophils % 59.4 % (38.7-73.9); Platelet Count 187 T/CUMM (130-400); Red Blood Count 3.82 MC/CUMM (3.8-5.5); Red Cell Distribution Width 12.2 % (9.3-17.3); White Blood Count 9.4 T/CUMM (4-12)
[2019-01-13 04:49] LABS: Calcium 8.3 MG/DL (8.5-10.1); Osmolality,Calculated 282.4 MOS/KG (273-304)
[2019-01-13] MEDS: LEVOTHYROXINE 25 MCG TABLET PO SCH (06:21)
[2019-01-13] MEDS: FOLIC ACID 1 MG TABLET PO SCH (09:16)
[2019-01-13] MEDS: PANTOPRAZOLE 40 MG TABLET PO SCH ×3 (09:16→21:46)
[2019-01-13] MEDS: POTASSIUM CHLORIDE 8 MEQ CAPSULE PO SCH ×2 (09:16→21:44)
[2019-01-13] MEDS: METOPROLOL TARTRATE 100 MG TABLET PO SCH ×3 (09:16→21:46)
[2019-01-13] MEDS: FUROSEMIDE 40 MG TABLET PO SCH (09:16)
[2019-01-13] MEDS: GABAPENTIN 300 MG CAPSULE PO SCH ×4 (09:16→21:46)
[2019-01-13] MEDS: ENOXAPARIN 40 MG/0.4 ML SYRINGE SUBCUT SCH (09:16)
[2019-01-13] MEDS: DOCUSATE SODIUM 100 MG CAPSULE PO SCH ×3 (09:16→21:46)
[2019-01-13] MEDS: MULTIVITAMIN (CENTRUM) TABLET PO SCH (09:16)
[2019-01-13] MEDS: NICOTINE 14 MG/24 HR PATCH TRANSDERM SCH (09:17)
[2019-01-13] MEDS: buPROPion SR 150 MG TABLET PO SCH ×2 (09:17→21:44)
[2019-01-13] MEDS: ASPIRIN CHEW 81 MG TABLET PO SCH (09:18)
[2019-01-13] MEDS: LACTULOSE 20 GM/30 ML UDCUP PO SCH (09:20)
[2019-01-13] MEDS: INSULIN LISPRO 100 UNIT/ML SUBCUT SCH ×4 (10:28→21:43)
[2019-01-13] MEDS: SODIUM CHLORIDE 0.9% 1,000 ML IV SCH (16:01)
[2019-01-13] MEDS: DULoxetine 30 MG CAPSULE PO SCH ×2 (20:49→21:46)
[2019-01-14] MEDS: LORazepam 1 MG TABLET PO PRN ×2 (00:19→16:21)
[2019-01-14] MEDS: PIPERACILLIN/TAZOBACTAM 3,375 MG in SODIUM CHLORIDE 0.9% 100 ML IV SCH ×3 (01:59→16:20)
[2019-01-14 05:42] LABS: Basophils # 0.1 10*3/uL (0.0-0.2); Basophils % 0.6 % (0.0-0.8); Eosinophils # 0.3 10*3/uL (0.0-0.87); Eosinophils % 3.7 % (0.00-10.9); Hematocrit 39.6 VOL% (42.0-52.0); Hemoglobin 13.3 GM/DL (14.0-18.0); Immature Granulocytes % 1.3 %; Immature Granulocytes Absolute 0.11 #; Lymphocytes # 3.5 10*3/uL (1.4-4.0); Mean Corpuscular HGB Conc 33.6 GM/DL (32-36); Mean Corpuscular Volume 98.3 FL (87-102); Mean Platelet Volume 10.8 FL (9.6-12.0); Monocytes % 13.7 % (1.7-12.7); Neutrophils % 40.7 % (38.7-73.9); Platelet Count 204 T/CUMM (130-400); Red Blood Count 4.03 MC/CUMM (3.8-5.5); Red Cell Distribution Width 12.2 % (9.3-17.3); White Blood Count 8.7 T/CUMM (4-12)
[2019-01-14] MEDS: LEVOTHYROXINE 25 MCG TABLET PO SCH (05:49)
[2019-01-14 06:02] LABS: Osmolality,Calculated 280.4 MOS/KG (273-304)
[2019-01-14] MEDS: LACTULOSE 20 GM/30 ML UDCUP PO SCH (09:08)
[2019-01-14] MEDS: NICOTINE 14 MG/24 HR PATCH TRANSDERM SCH (09:08)
[2019-01-14] MEDS: FOLIC ACID 1 MG TABLET PO SCH (09:08)
[2019-01-14] MEDS: GABAPENTIN 300 MG CAPSULE PO SCH ×3 (09:08→21:09)
[2019-01-14] MEDS: DOCUSATE SODIUM 100 MG CAPSULE PO SCH ×2 (09:09→21:11)
[2019-01-14] MEDS: FUROSEMIDE 40 MG TABLET PO SCH (09:09)
[2019-01-14] MEDS: POTASSIUM CHLORIDE 8 MEQ CAPSULE PO SCH ×2 (09:09→21:10)
[2019-01-14] MEDS: METOPROLOL TARTRATE 100 MG TABLET PO SCH ×2 (09:10→21:10)
[2019-01-14] MEDS: PANTOPRAZOLE 40 MG TABLET PO SCH ×2 (09:10→21:10)
[2019-01-14] MEDS: ASPIRIN CHEW 81 MG TABLET PO SCH (09:10)
[2019-01-14] MEDS: MULTIVITAMIN (CENTRUM) TABLET PO SCH (09:10)
[2019-01-14] MEDS: buPROPion SR 150 MG TABLET PO SCH ×2 (09:11→21:10)
[2019-01-14] MEDS: ENOXAPARIN 40 MG/0.4 ML SYRINGE SUBCUT SCH (09:14)
[2019-01-14] MEDS ORDERED: SODIUM CHLOR 0.9% KCL 20 MEQ 20 MEQ/1,000 ML BAG IV SCH (10:11)
[2019-01-14] MEDS: INSULIN LISPRO 100 UNIT/ML SUBCUT SCH ×4 (10:32→21:26)
[2019-01-14] MEDS: POTASSIUM CHLORIDE RIDER 10 MEQ in PREMIX 1 EACH IV SCH ×2 (11:09→12:38)
[2019-01-14] MEDS ORDERED: LORazepam 2 MG/1 ML VIAL ONE (16:04)
[2019-01-14] MEDS: DULoxetine 30 MG CAPSULE PO SCH (21:10)
[2019-01-15] MEDS: PIPERACILLIN/TAZOBACTAM 3,375 MG in SODIUM CHLORIDE 0.9% 100 ML IV SCH ×3 (00:42→18:50)
[2019-01-15 05:18] LABS: Basophils % 0.3 % (0.0-0.8); Eosinophils # 0.2 10*3/uL (0.0-0.87); Eosinophils % 2.7 % (0.00-10.9); Hematocrit 35.8 VOL% (42.0-52.0); Hemoglobin 12.5 GM/DL (14.0-18.0); Immature Granulocytes % 1.9 %; Immature Granulocytes Absolute 0.12 #; Lymphocytes # 2.5 10*3/uL (1.4-4.0); Lymphocytes % 39.2 % (21.2-54.2); Mean Corpuscular HGB Conc 34.9 GM/DL (32-36); Mean Corpuscular Volume 96.8 FL (87-102); Mean Platelet Volume 10.5 FL (9.6-12.0); Monocytes % 14.5 % (1.7-12.7); Neutrophils % 41.4 % (38.7-73.9); Platelet Count 167 T/CUMM (130-400); Red Cell Distribution Width 11.8 % (9.3-17.3); White Blood Count 6.3 T/CUMM (4-12)
[2019-01-15 05:42] LABS: Calcium 8.3 MG/DL (8.5-10.1); Osmolality,Calculated 278.5 MOS/KG (273-304)
[2019-01-15] MEDS: LEVOTHYROXINE 25 MCG TABLET PO SCH (06:24)
[2019-01-15] MEDS: INSULIN LISPRO 100 UNIT/ML SUBCUT SCH ×4 (08:48→22:28)
[2019-01-15] MEDS: ASPIRIN CHEW 81 MG TABLET PO SCH (08:49)
[2019-01-15] MEDS: GABAPENTIN 300 MG CAPSULE PO SCH ×4 (08:51→22:31)
[2019-01-15] MEDS: METOPROLOL TARTRATE 100 MG TABLET PO SCH ×3 (08:51→22:31)
[2019-01-15] MEDS: POTASSIUM CHLORIDE 8 MEQ CAPSULE PO SCH ×3 (08:51→22:31)
[2019-01-15] MEDS: PANTOPRAZOLE 40 MG TABLET PO SCH ×2 (08:51→20:22)
[2019-01-15] MEDS: FOLIC ACID 1 MG TABLET PO SCH (08:51)
[2019-01-15] MEDS: MULTIVITAMIN (CENTRUM) TABLET PO SCH (08:52)
[2019-01-15] MEDS: ENOXAPARIN 40 MG/0.4 ML SYRINGE SUBCUT SCH (08:52)
[2019-01-15] MEDS: FUROSEMIDE 40 MG TABLET PO SCH (08:52)
[2019-01-15] MEDS: NICOTINE 14 MG/24 HR PATCH TRANSDERM SCH (08:52)
[2019-01-15] MEDS: LACTULOSE 20 GM/30 ML UDCUP PO SCH (09:27)
[2019-01-15] MEDS: buPROPion SR 150 MG TABLET PO SCH ×2 (09:27→22:28)
[2019-01-15] MEDS: DOCUSATE SODIUM 100 MG CAPSULE PO SCH ×3 (09:28→22:31)
[2019-01-15] MEDS: SODIUM CHLORIDE 0.9% 1,000 ML IV SCH (11:03)
[2019-01-15] MEDS: POTASSIUM CHLORIDE RIDER 10 MEQ in PREMIX 1 EACH IV SCH ×3 (12:42→16:27)
[2019-01-15] MEDS: PRAMOXINE/HYDROCORTISONE RECTAL FOAM 10 GM CAN TOP SCH ×2 (16:28→20:22)
[2019-01-15] MEDS: LORazepam 1 MG TABLET PO PRN (18:44)
[2019-01-15] MEDS ORDERED: HALOPERIDOL 5 MG/ML AMP IM PRN ×2 (19:54→20:01)
[2019-01-15] MEDS: DULoxetine 30 MG CAPSULE PO SCH ×2 (20:23→22:31)
[2019-01-16] MEDS: PIPERACILLIN/TAZOBACTAM 3,375 MG in SODIUM CHLORIDE 0.9% 100 ML IV SCH ×2 (01:25→10:47)
[2019-01-16 05:54] LABS: Basophils % 0.4 % (0.0-0.8); Eosinophils # 0.2 10*3/uL (0.0-0.87); Eosinophils % 4.7 % (0.00-10.9); Hematocrit 37.5 VOL% (42.0-52.0); Hemoglobin 12.3 GM/DL (14.0-18.0); Immature Granulocytes % 1.7 %; Immature Granulocytes Absolute 0.08 #; Lymphocytes # 1.9 10*3/uL (1.4-4.0); Lymphocytes % 40.5 % (21.2-54.2); Mean Corpuscular HGB Conc 32.8 GM/DL (32-36); Mean Corpuscular Volume 99.7 FL (87-102); Mean Platelet Volume 10.6 FL (9.6-12.0); Neutrophils % 35.7 % (38.7-73.9); Platelet Count 157 T/CUMM (130-400); Red Blood Count 3.76 MC/CUMM (3.8-5.5); Red Cell Distribution Width 12.3 % (9.3-17.3); White Blood Count 4.6 T/CUMM (4-12)
[2019-01-16] MEDS: LEVOTHYROXINE 25 MCG TABLET PO SCH (05:55)
[2019-01-16 06:05] LABS: Calcium 9.1 MG/DL (8.5-10.1); Osmolality,Calculated 281.3 MOS/KG (273-304)
[2019-01-16 06:18] LABS: Band Neutrophils 1 % (0-10); Eosinophils 4 % (0-10); Hypochromasia 1+; Lymphocytes 38 % (20-55); Segmented Neutrophils 47 % (50-85); Total Cells Counted 100
[2019-01-16 06:21] LABS: Atypical Lymphocytes Few
[2019-01-16] MEDS: INSULIN LISPRO 100 UNIT/ML SUBCUT SCH ×2 (07:21→12:07)
[2019-01-16] MEDS: FOLIC ACID 1 MG TABLET PO SCH (09:32)
[2019-01-16] MEDS: buPROPion SR 150 MG TABLET PO SCH (09:32)
[2019-01-16] MEDS: POTASSIUM CHLORIDE 8 MEQ CAPSULE PO SCH (09:33)
[2019-01-16] MEDS: ASPIRIN CHEW 81 MG TABLET PO SCH (09:33)
[2019-01-16] MEDS: FUROSEMIDE 40 MG TABLET PO SCH (09:33)
[2019-01-16] MEDS: METOPROLOL TARTRATE 100 MG TABLET PO SCH (09:34)
[2019-01-16] MEDS: PANTOPRAZOLE 40 MG TABLET PO SCH (09:35)
[2019-01-16] MEDS: DOCUSATE SODIUM 100 MG CAPSULE PO SCH (09:35)
[2019-01-16] MEDS: GABAPENTIN 300 MG CAPSULE PO SCH (09:35)
[2019-01-16] MEDS: MULTIVITAMIN (CENTRUM) TABLET PO SCH (09:36)
[2019-01-16] MEDS: NICOTINE 14 MG/24 HR PATCH TRANSDERM SCH (09:38)
[2019-01-16] MEDS: ENOXAPARIN 40 MG/0.4 ML SYRINGE SUBCUT SCH (09:40)
[2019-01-16] MEDS: LACTULOSE 20 GM/30 ML UDCUP PO SCH (09:41)
[2019-01-16] MEDS: PRAMOXINE/HYDROCORTISONE RECTAL FOAM 10 GM CAN TOP SCH (09:41)
[2019-01-16 11:50] VITALS: BP 183/89
== END 2019-01-16 12:48 | DRG 637 ==
LOC: EDBD → EDUNIT# → N.ED 20:20 → N.EDINP 22:26 → N.CC 22:41 → N.2E 01-11 19:25
PROVIDERS: ADMIT Internal Medicine; ATTEND Internal Medicine

== ENCOUNTER 2020-03-14 11:51 | Observation (INO) ==
[2020-03-14] MEDS ORDERED: ONDANSETRON 4 MG/2 ML VIAL IV ONE (14:30)
[2020-03-14] MEDS ORDERED: HYDROmorphone 2 MG/1 ML VIAL IV STA (14:30)
[2020-03-14 14:35] LABS: Basophils % 0.2 % (0.0-0.8); Eosinophils # 0.2 10*3/uL (0.0-0.87); Eosinophils % 1.1 % (0.00-10.9); Hematocrit 37.1 VOL% (42.0-52.0); Hemoglobin 12.1 GM/DL (14.0-18.0); Immature Granulocytes % 0.6 %; Immature Granulocytes Absolute 0.08 #; Lymphocytes # 2.1 10*3/uL (1.4-4.0); Lymphocytes % 16.2 % (21.2-54.2); Mean Corpuscular HGB Conc 32.6 GM/DL (32-36); Mean Corpuscular Volume 91.6 FL (87-102); Mean Platelet Volume 9.6 FL (9.6-12.0); Monocytes % 7.1 % (1.7-12.7); Neutrophils % 74.8 % (38.7-73.9); Platelet Count 238 T/CUMM (130-400); Red Blood Count 4.05 MC/CUMM (3.8-5.5); Red Cell Distribution Width 13.1 % (9.3-17.3); White Blood Count 13.1 T/CUMM (4-12)
[2020-03-14 15:09] LABS: Albumin 3.4 G/DL (3.4-5.0); Bilirubin,Total 0.5 MG/DL (0.2-1.0); Calcium 9.4 MG/DL (8.5-10.1); Osmolality,Calculated 274.5 MOS/KG (273-304); Total Protein 8.2 G/DL (6.4-8.3)
[2020-03-14] MEDS ORDERED: ONDANSETRON 4 MG/2 ML VIAL IV PRN (15:45)
[2020-03-14] MEDS ORDERED: BISACODYL 5 MG TABLET PO PRN (15:45)
[2020-03-14] MEDS ORDERED: HYDROmorphone 2 MG/1 ML VIAL IV PRN (15:45)
[2020-03-14] MEDS ORDERED: ALBUTEROL/IPRATROPIUM 3 ML NEB RESP TX PRN (15:45)
[2020-03-14] MEDS ORDERED: ACETAMINOPHEN 325 MG TABLET PO PRN (15:45)
[2020-03-14] MEDS: KETOROLAC 15 MG/1 ML VIAL IV SCH ×2 (16:22→22:09)
[2020-03-14] MEDS: HYDROmorphone 2 MG/1 ML VIAL IV PRN ×2 (19:03→21:05)
[2020-03-14] MEDS: ALBUTEROL/IPRATROPIUM 3 ML NEB RESP TX SCH (19:24)
[2020-03-14] MEDS: DULoxetine 30 MG CAPSULE PO SCH (21:03)
[2020-03-14] MEDS: POTASSIUM CHLORIDE 20 MEQ TABLET PO SCH (21:04)
[2020-03-14] MEDS ORDERED: GLUCAGON 1 MG VIAL IM PRN (21:32)
[2020-03-14] MEDS ORDERED: DEXTROSE 50% 25 GM/50 ML VIAL IV PRN (21:32)
[2020-03-14] MEDS: PREGABALIN 75 MG CAPSULE PO SCH (22:00)
[2020-03-14] MEDS: GABAPENTIN 100 MG CAPSULE PO SCH (22:01)
[2020-03-14] MEDS: INSULIN REGULAR 100 UNIT/ML SUBCUT SCH (22:01)
[2020-03-15] MEDS: HYDROmorphone 2 MG/1 ML VIAL IV PRN ×4 (00:05→19:41)
[2020-03-15] MEDS: ALBUTEROL/IPRATROPIUM 3 ML NEB RESP TX SCH ×5 (00:10→20:07)
[2020-03-15] MEDS: KETOROLAC 15 MG/1 ML VIAL IV SCH ×4 (03:47→21:35)
[2020-03-15 05:04] LABS: Basophils % 0.2 % (0.0-0.8); Eosinophils # 0.4 10*3/uL (0.0-0.87); Eosinophils % 2.6 % (0.00-10.9); Hemoglobin 12.1 GM/DL (14.0-18.0); Immature Granulocytes Absolute 0.16 #; Lymphocytes # 2.3 10*3/uL (1.4-4.0); Lymphocytes % 13.9 % (21.2-54.2); Mean Corpuscular HGB Conc 31.8 GM/DL (32-36); Mean Corpuscular Volume 94.5 FL (87-102); Mean Platelet Volume 9.7 FL (9.6-12.0); Monocytes % 8.4 % (1.7-12.7); Neutrophils % 73.9 % (38.7-73.9); Platelet Count 241 T/CUMM (130-400); Red Blood Count 4.02 MC/CUMM (3.8-5.5); Red Cell Distribution Width 13.2 % (9.3-17.3); White Blood Count 16.3 T/CUMM (4-12)
[2020-03-15 05:30] LABS: Calcium 8.9 MG/DL (8.5-10.1); Osmolality,Calculated 280.1 MOS/KG (273-304)
[2020-03-15] MEDS ORDERED: LORazepam 0.5 MG TABLET PO PRN (06:41)
[2020-03-15] MEDS: INSULIN REGULAR 100 UNIT/ML SUBCUT SCH (08:17)
[2020-03-15] MEDS ORDERED: BUPIVACAINE 0.5% /EPI 10 ML VIAL MISC INJ ONE (08:53)
[2020-03-15] MEDS ORDERED: TRIAMCINOLONE ACETONIDE 40 MG/1 ML VIAL MISC INJ ONE (08:54)
[2020-03-15] MEDS ORDERED: PREGABALIN 75 MG CAPSULE PO SCH (09:00)
[2020-03-15] MEDS ORDERED: NON-FORMULARY MEDICATION (Omeprazole 40 MG) PO SCH (09:00)
[2020-03-15] MEDS: PANTOPRAZOLE 40 MG TABLET PO SCH (09:23)
[2020-03-15] MEDS: POTASSIUM CHLORIDE 20 MEQ TABLET PO SCH ×2 (09:23→21:35)
[2020-03-15] MEDS: DONEPEZIL 10 MG TABLET PO SCH (09:23)
[2020-03-15] MEDS: FOLIC ACID 1 MG TABLET PO SCH (09:23)
[2020-03-15] MEDS: LORazepam 0.5 MG TABLET PO SCH ×2 (09:23→21:34)
[2020-03-15] MEDS: ASPIRIN CHEW 81 MG TABLET PO SCH (09:23)
[2020-03-15] MEDS: busPIRone 10 MG TABLET PO SCH (09:24)
[2020-03-15] MEDS: METOPROLOL TARTRATE 100 MG TABLET PO SCH ×2 (09:24→21:33)
[2020-03-15] MEDS: lisinopriL 10 MG TABLET PO SCH (09:24)
[2020-03-15] MEDS: amLODIPine 10 MG TABLET PO SCH (09:24)
[2020-03-15] MEDS: GABAPENTIN 100 MG CAPSULE PO SCH ×3 (09:24→21:34)
[2020-03-15] MEDS: PREGABALIN 75 MG CAPSULE PO SCH ×2 (09:24→21:34)
[2020-03-15] MEDS: ENOXAPARIN 40 MG/0.4 ML SYRINGE SUBCUT SCH (09:25)
[2020-03-15] MEDS: LIDOCAINE 5% PATCH TRANSDERM SCH (09:25)
[2020-03-15] MEDS: MEMANTINE 10 MG TABLET PO SCH (09:25)
[2020-03-15] MEDS: INSULIN LISPRO 100 UNIT/ML SUBCUT SCH ×3 (09:26→17:28)
[2020-03-15] MEDS ORDERED: BUPIVACAINE MPF 0.5% /EPI 30 ML VIAL MISC INJ ONE (09:30)
[2020-03-15] MEDS ORDERED: DEXTROSE 50% 25 GM/50 ML VIAL IV PRN (11:56)
[2020-03-15] MEDS: METHOCARBAMOL 750 MG TABLET PO PRN (18:21)
[2020-03-15] MEDS: INSULIN GLARGINE 100 UNIT/ML SUBCUT SCH (21:30)
[2020-03-15] MEDS: DULoxetine 30 MG CAPSULE PO SCH (21:33)
[2020-03-16] MEDS: ALBUTEROL/IPRATROPIUM 3 ML NEB RESP TX SCH ×4 (00:11→19:01)
[2020-03-16] MEDS: HYDROmorphone 2 MG/1 ML VIAL IV PRN ×3 (00:20→06:30)
[2020-03-16] MEDS: KETOROLAC 15 MG/1 ML VIAL IV SCH ×4 (04:10→22:01)
[2020-03-16] MEDS: METHOCARBAMOL 750 MG TABLET PO PRN (05:47)
[2020-03-16] MEDS: METOPROLOL TARTRATE 100 MG TABLET PO SCH ×2 (08:49→20:57)
[2020-03-16] MEDS: ASPIRIN CHEW 81 MG TABLET PO SCH (08:49)
[2020-03-16] MEDS: POTASSIUM CHLORIDE 20 MEQ TABLET PO SCH ×2 (08:49→20:58)
[2020-03-16] MEDS: DONEPEZIL 10 MG TABLET PO SCH (08:50)
[2020-03-16] MEDS: FOLIC ACID 1 MG TABLET PO SCH (08:51)
[2020-03-16] MEDS: PANTOPRAZOLE 40 MG TABLET PO SCH (08:51)
[2020-03-16] MEDS: PREGABALIN 75 MG CAPSULE PO SCH ×2 (08:51→20:58)
[2020-03-16] MEDS: GABAPENTIN 100 MG CAPSULE PO SCH ×3 (08:51→20:58)
[2020-03-16] MEDS: busPIRone 10 MG TABLET PO SCH (08:52)
[2020-03-16] MEDS: lisinopriL 10 MG TABLET PO SCH (08:52)
[2020-03-16] MEDS: MEMANTINE 10 MG TABLET PO SCH (08:52)
[2020-03-16] MEDS: amLODIPine 10 MG TABLET PO SCH (08:52)
[2020-03-16] MEDS: ENOXAPARIN 40 MG/0.4 ML SYRINGE SUBCUT SCH (08:53)
[2020-03-16] MEDS: LIDOCAINE 5% PATCH TRANSDERM SCH (08:53)
[2020-03-16] MEDS: INSULIN LISPRO 100 UNIT/ML SUBCUT SCH ×3 (08:53→16:20)
[2020-03-16] MEDS: LORazepam 0.5 MG TABLET PO SCH (08:54)
[2020-03-16] MEDS: INSULIN GLARGINE 100 UNIT/ML SUBCUT SCH (20:56)
[2020-03-16] MEDS: DULoxetine 30 MG CAPSULE PO SCH (20:57)
[2020-03-17] MEDS: ALBUTEROL/IPRATROPIUM 3 ML NEB RESP TX SCH ×2 (00:01→07:36)
[2020-03-17] MEDS: HYDROmorphone 2 MG/1 ML VIAL IV PRN (01:16)
[2020-03-17] MEDS: KETOROLAC 15 MG/1 ML VIAL IV SCH ×2 (04:04→09:42)
[2020-03-17 08:09] VITALS: BP 149/73
[2020-03-17] MEDS: INSULIN LISPRO 100 UNIT/ML SUBCUT SCH (09:40)
[2020-03-17] MEDS: PANTOPRAZOLE 40 MG TABLET PO SCH (09:41)
[2020-03-17] MEDS: lisinopriL 10 MG TABLET PO SCH (09:41)
[2020-03-17] MEDS: POTASSIUM CHLORIDE 20 MEQ TABLET PO SCH (09:41)
[2020-03-17] MEDS: DONEPEZIL 10 MG TABLET PO SCH (09:41)
[2020-03-17] MEDS: MEMANTINE 10 MG TABLET PO SCH (09:41)
[2020-03-17] MEDS: METOPROLOL TARTRATE 100 MG TABLET PO SCH (09:41)
[2020-03-17] MEDS: GABAPENTIN 100 MG CAPSULE PO SCH (09:42)
[2020-03-17] MEDS: FOLIC ACID 1 MG TABLET PO SCH (09:42)
[2020-03-17] MEDS: PREGABALIN 75 MG CAPSULE PO SCH (09:42)
[2020-03-17] MEDS: amLODIPine 10 MG TABLET PO SCH (09:42)
[2020-03-17] MEDS: ENOXAPARIN 40 MG/0.4 ML SYRINGE SUBCUT SCH (09:42)
[2020-03-17] MEDS: ASPIRIN CHEW 81 MG TABLET PO SCH (09:42)
[2020-03-17] MEDS: LIDOCAINE 5% PATCH TRANSDERM SCH (09:43)
[2020-03-17] MEDS: busPIRone 10 MG TABLET PO SCH (09:43)
== END 2020-03-17 11:10 | disposition home or self-care (01) ==
LOC: N.EDINP 11:51 → N.ED 11:51 → N.EDINP 19:38 → N.5E 20:25
PROVIDERS: ADMIT Surgery; ATTEND Surgery

== ENCOUNTER 2020-05-24 01:48 | Inpatient (IN) ==
[2020-05-24 02:42] LABS: Basophils # 0.1 10*3/uL (0.0-0.2); Basophils % 0.4 % (0.0-0.8); Eosinophils # 0.1 10*3/uL (0.0-0.87); Eosinophils % 0.2 % (0.00-10.9); Hematocrit 47.3 VOL% (42.0-52.0); Hemoglobin 16.4 GM/DL (14.0-18.0); Immature Granulocytes % 1.1 %; Immature Granulocytes Absolute 0.33 #; Lymphocytes # 2.1 10*3/uL (1.4-4.0); Mean Corpuscular HGB Conc 34.7 GM/DL (32-36); Mean Corpuscular Volume 87.6 FL (87-102); Mean Platelet Volume 9.7 FL (9.6-12.0); Monocytes % 10.6 % (1.7-12.7); NRBC # 0.03 10*3/uL; Neutrophils % 80.7 % (38.7-73.9); Platelet Count 339 T/CUMM (130-400); Red Cell Distribution Width 13.8 % (9.3-17.3); White Blood Count 29.5 T/CUMM (4-12)
[2020-05-24] MEDS ORDERED: LEVOFLOXACIN INJ 500 MG in PREMIX 1 EACH IV STA (03:04)
[2020-05-24 03:05] LABS: INR 1.2; PT Patient Result 12.8 SECS (9.8-11.9)
[2020-05-24] MEDS ORDERED: SODIUM CHLORIDE 0.9% 1,000 ML IV STA ×3 (03:05→04:31)
[2020-05-24 03:07] LABS: Albumin 3.5 G/DL (3.4-5.0); Bilirubin,Total 0.9 MG/DL (0.2-1.0); Calcium 9.9 MG/DL (8.5-10.1); Osmolality,Calculated 286.9 MOS/KG (273-304); Total Protein 7.8 G/DL (6.4-8.3)
[2020-05-24] MEDS ORDERED: INSULIN REGULAR 100 UNIT/ML IV STA (03:10)
[2020-05-24 03:41] LABS: ABG Base Excess -13.4 MMOL/L (-2.5-2.5); ABG HCO3 14.5 MMOL/L (20-26); ABG Oxygen Saturation 97.9 % (95-100); ABG PCO2 26.6 MM HG (35-48); ABG PH 7.272 (7.35-7.45); ABG TCO2 10.5 MMOL/L (23-27); Allen Test Positive
[2020-05-24] MEDS ORDERED: AMIODARONE INJ 300 MG in DEXTROSE 5% 100 ML IV ONE (04:01)
[2020-05-24] MEDS ORDERED: AMIODARONE 150 MG/3 ML VIAL ONE (04:01)
[2020-05-24] MEDS ORDERED: INSULIN REGULAR DRIP 100 ML IV PRN (04:02)
[2020-05-24] MEDS ORDERED: AMIODARONE 450 MG/9 ML VIAL IV ONE (04:06)
[2020-05-24 04:30] LABS: Lymphocytes 9 % (20-55); Platelet Estimate Adequate; Segmented Neutrophils 72 % (50-85); Total Cells Counted 100
[2020-05-24] MEDS ORDERED: AMIODARONE INJ 450 MG in DEXTROSE 5% 241 ML IV SCH (04:30)
[2020-05-24] MEDS ORDERED: DEXTROSE 50% 25 GM/50 ML VIAL IV PRN ×2 (04:51)
[2020-05-24] MEDS ORDERED: MAGNESIUM SULF RIDER 4 GM in PREMIX 1 EACH IV PRN (04:51)
[2020-05-24] MEDS ORDERED: SODIUM PHOSPHATE INJ 19.3 MMOL in SODIUM CHLORIDE 0.9% 250 ML IV PRN (04:51)
[2020-05-24] MEDS ORDERED: MAGNESIUM SULF RIDER 2 GM in PREMIX 1 EACH IV PRN (04:51)
[2020-05-24] MEDS ORDERED: SODIUM BICARB INJ 100 MEQ in STERILE WATER INJ 400 ML IV PRN (04:51)
[2020-05-24] MEDS ORDERED: INSULIN REGULAR DRIP 100 ML IV SCH (05:00)
[2020-05-24] MEDS ORDERED: cefTRIAXone 2,000 MG in SYRINGE 1 EACH IV SCH (05:00)
[2020-05-24] MEDS ORDERED: ENOXAPARIN 30 MG/0.3 ML SYRINGE SUBCUT SCH (05:00)
[2020-05-24] MEDS ORDERED: DEXTROSE 50% 25 GM/50 ML SYRINGE IV PRN (05:03)
[2020-05-24] MEDS ORDERED: ALBUTEROL 2.5 MG/3 ML NEB RESP TX PRN (05:11)
[2020-05-24] MEDS ORDERED: ONDANSETRON 4 MG/2 ML VIAL IV PRN (05:11)
[2020-05-24] MEDS ORDERED: DOCUSATE SODIUM 100 MG CAPSULE PO PRN (05:11)
[2020-05-24] MEDS ORDERED: FAMOTIDINE 20 MG/2 ML VIAL IV SCH (05:30)
[2020-05-24] MEDS: SODIUM CHLORIDE 0.9% 1,000 ML IV SCH ×2 (06:00→08:14)
[2020-05-24] MEDS: PIPERACILLIN/TAZOBACTAM 3,375 MG in SODIUM CHLORIDE 0.9% 100 ML IV SCH ×2 (06:04→17:58)
[2020-05-24 06:48] LABS: Osmolality,Calculated 287.2 MOS/KG (273-304)
[2020-05-24] MEDS ORDERED: ALBUTEROL/IPRATROPIUM 3 ML NEB RESP TX SCH (07:00)
[2020-05-24 09:15] LABS: Bacteria,Urine Occasional /HPF (Few); RBC,Urine 1 /HPF (0-4); WBC,Urine <1 /HPF (0-6)
[2020-05-24 09:16] LABS: Bilirubin,Urine Negative (Negative); Blood, Urine Trace mg/dL (Negative); Glucose,Urine (UA) 500 mg/dL (Negative); Ketones,Urine Negative (Negative); Nitrite,Urine Negative (Negative); Protein,Urine 30 MG/DL; Urine Appearance Clear (Clear); Urine Color Yellow (Yellow); Urine Specific Gravity 1.005 (1.001-1.035); Urine Urobilinogen 0.2 EU/DL (0.2-1.0)
[2020-05-24] MEDS ORDERED: SODIUM CHLORIDE 0.9% 1,000 ML IV SCH ×2 (09:51→16:00)
[2020-05-24] MEDS: HEPARIN DRIP 25,000 UNITS/500 ML PREMIX IV SCH (10:07)
[2020-05-24 11:31] LABS: Calcium 7.8 MG/DL (8.5-10.1); Osmolality,Calculated 287.1 MOS/KG (273-304)
[2020-05-24] MEDS: POTASSIUM CHLORIDE RIDER 10 MEQ in PREMIX 1 EACH IV PRN ×6 (12:00→20:32)
[2020-05-24 14:20] LABS: Calcium 7.6 MG/DL (8.5-10.1); Osmolality,Calculated 283.8 MOS/KG (273-304)
[2020-05-24] MEDS ORDERED: SODIUM CHLOR 0.9% KCL 20 MEQ 20 MEQ/1,000 ML BAG IV SCH (15:30)
[2020-05-24] MEDS: guaiFENesin 200 MG/10 ML UDCUP PO PRN (16:04)
[2020-05-24] MEDS: DILTIAZEM 60 MG TABLET PO SCH ×2 (16:07→17:33)
[2020-05-24] MEDS ORDERED: INSULIN GLARGINE 100 UNIT/ML SUBCUT SCH (16:08)
[2020-05-24] MEDS ORDERED: INSULIN REGULAR 100 UNIT/ML SUBCUT SCH (16:30)
[2020-05-24] MEDS: INSULIN REGULAR 100 UNIT/ML SUBCUT SCH ×2 (16:32→21:36)
[2020-05-24] MEDS: INSULIN GLARGINE 100 UNIT/ML SUBCUT SCH (16:32)
[2020-05-24] MEDS ORDERED: DILTIAZEM 60 MG TABLET PO SCH (17:00)
[2020-05-24] MEDS ORDERED: DILTIAZEM 50 MG/10 ML VIAL IV ONE ×2 (17:47→17:49)
[2020-05-24] MEDS: dilTIAZem Drip 125 MG/125 ML PREMIX IV SCH (17:58)
[2020-05-24] MEDS ORDERED: FUROSEMIDE 40 MG/4 ML VIAL IV ONE (18:15)
[2020-05-24] MEDS ORDERED: MORPHINE 4 MG/1 ML VIAL IV ONE (18:15)
[2020-05-24 22:04] LABS: Osmolality,Calculated 282.7 MOS/KG (273-304)
[2020-05-24] MEDS: SODIUM CHLORIDE 0.45% 1,000 ML IV SCH (23:22)
[2020-05-25] MEDS: INSULIN REGULAR 100 UNIT/ML SUBCUT SCH ×7 (00:09→23:28)
[2020-05-25] MEDS ORDERED: METOPROLOL TARTRATE 5 MG/5 ML VIAL IV ONE ×3 (00:46→02:45)
[2020-05-25 05:00] LABS: ABG Base Excess -1.6 MMOL/L (-2.5-2.5); ABG Oxygen Saturation 94.7 % (95-100); ABG PCO2 32.2 MM HG (35-48); ABG PH 7.438 (7.35-7.45); ABG PO2 73.8 MM HG (80-95); ABG TCO2 19.1 MMOL/L (23-27); Allen Test Positive; Pt O2 Delivery Device Other
[2020-05-25] MEDS: HEPARIN DRIP 25,000 UNITS/500 ML PREMIX IV SCH (05:01)
[2020-05-25 05:09] LABS: Albumin 2.4 G/DL (3.4-5.0); Bilirubin,Direct 0.14 MG/DL (0.0-0.20); Bilirubin,Indirect 0.8 MG/DL (0.0-1.0); Bilirubin,Total 0.9 MG/DL (0.2-1.0); Calcium 8.1 MG/DL (8.5-10.1); Osmolality,Calculated 279.1 MOS/KG (273-304); Total Protein 6.2 G/DL (6.4-8.3)
[2020-05-25 05:29] LABS: Basophils # 0.1 10*3/uL (0.0-0.2); Basophils % 0.4 % (0.0-0.8); Eosinophils % 0.1 % (0.00-10.9); Hematocrit 34.8 VOL% (42.0-52.0); Hemoglobin 12.6 GM/DL (14.0-18.0); Immature Granulocytes % 1.2 %; Immature Granulocytes Absolute 0.15 #; Lymphocytes # 2.4 10*3/uL (1.4-4.0); Lymphocytes % 18.7 % (21.2-54.2); Mean Corpuscular HGB Conc 36.2 GM/DL (32-36); Mean Corpuscular Volume 84.9 FL (87-102); Monocytes % 12.8 % (1.7-12.7); Neutrophils % 66.8 % (38.7-73.9); Platelet Count 209 T/CUMM (130-400); White Blood Count 12.7 T/CUMM (4-12)
[2020-05-25] MEDS: SODIUM CHLORIDE 0.45% 1,000 ML IV SCH (05:37)
[2020-05-25] MEDS: PIPERACILLIN/TAZOBACTAM 3,375 MG in SODIUM CHLORIDE 0.9% 100 ML IV SCH ×2 (05:47→17:02)
[2020-05-25] MEDS: POTASSIUM CHLORIDE RIDER 10 MEQ in PREMIX 1 EACH IV PRN ×3 (06:05→08:21)
[2020-05-25] MEDS: guaiFENesin 200 MG/10 ML UDCUP PO PRN ×2 (06:05→20:21)
[2020-05-25] MEDS: dilTIAZem Drip 125 MG/125 ML PREMIX IV SCH (07:12)
[2020-05-25] MEDS: METOPROLOL TARTRATE 50 MG TABLET PO SCH (08:20)
[2020-05-25] MEDS: INSULIN GLARGINE 100 UNIT/ML SUBCUT SCH (08:20)
[2020-05-25] MEDS: FAMOTIDINE 20 MG/2 ML VIAL IV SCH (08:20)
[2020-05-25] MEDS ORDERED: METOPROLOL TARTRATE 50 MG TABLET PO SCH (09:00)
[2020-05-25] MEDS ORDERED: HALOPERIDOL 5 MG/ML AMP IM ONE (09:21)
[2020-05-25] MEDS: DILTIAZEM 60 MG TABLET PO SCH ×3 (11:58→23:27)
[2020-05-25] MEDS: POTASSIUM PHOS/SOD PHOS POWDER 250 MG PACK PO SCH ×2 (16:46→20:20)
[2020-05-25] MEDS: LORazepam 1 MG TABLET PO SCH (20:20)
[2020-05-25] MEDS: APIXABAN 5 MG TABLET PO SCH (20:21)
[2020-05-25] MEDS ORDERED: APIXABAN 2.5 MG TABLET PO SCH (21:00)
[2020-05-26] MEDS: INSULIN REGULAR 100 UNIT/ML SUBCUT SCH ×5 (03:41→20:35)
[2020-05-26] MEDS: PIPERACILLIN/TAZOBACTAM 3,375 MG in SODIUM CHLORIDE 0.9% 100 ML IV SCH ×3 (05:54→22:06)
[2020-05-26] MEDS: DILTIAZEM 60 MG TABLET PO SCH ×3 (05:55→17:14)
[2020-05-26 07:04] LABS: Basophils # 0.1 10*3/uL (0.0-0.2); Basophils % 0.5 % (0.0-0.8); Eosinophils % 0.4 % (0.00-10.9); Hematocrit 32.7 VOL% (42.0-52.0); Hemoglobin 11.2 GM/DL (14.0-18.0); Immature Granulocytes % 2.2 %; Immature Granulocytes Absolute 0.21 #; Lymphocytes # 1.4 10*3/uL (1.4-4.0); Lymphocytes % 14.8 % (21.2-54.2); Mean Corpuscular HGB Conc 34.3 GM/DL (32-36); Mean Corpuscular Volume 89.8 FL (87-102); Mean Platelet Volume 9.9 FL (9.6-12.0); Monocytes % 12.1 % (1.7-12.7); Platelet Count 172 T/CUMM (130-400); Red Blood Count 3.64 MC/CUMM (3.8-5.5); Red Cell Distribution Width 14.8 % (9.3-17.3); White Blood Count 9.7 T/CUMM (4-12)
[2020-05-26 07:30] LABS: Albumin 2.2 G/DL (3.4-5.0); Bilirubin,Direct 0.14 MG/DL (0.0-0.20); Bilirubin,Indirect 0.5 MG/DL (0.0-1.0); Bilirubin,Total 0.6 MG/DL (0.2-1.0); Calcium 8.3 MG/DL (8.5-10.1); Osmolality,Calculated 278.8 MOS/KG (273-304)
[2020-05-26 07:46] LABS: Anisocytosis 1+; Band Neutrophils 28 % (0-10); Eosinophils 1 % (0-10); Lymphocytes 13 % (20-55); Platelet Estimate Normal; Segmented Neutrophils 43 % (50-85); Smudge Cells Few; Total Cells Counted 100
[2020-05-26] MEDS: INSULIN GLARGINE 100 UNIT/ML SUBCUT SCH (08:43)
[2020-05-26] MEDS: FAMOTIDINE 20 MG/2 ML VIAL IV SCH (08:45)
[2020-05-26] MEDS: APIXABAN 5 MG TABLET PO SCH ×2 (08:46→20:23)
[2020-05-26] MEDS: LORazepam 1 MG TABLET PO SCH ×2 (08:46→20:22)
[2020-05-26] MEDS: METOPROLOL TARTRATE 50 MG TABLET PO SCH (08:47)
[2020-05-26] MEDS: POTASSIUM PHOS/SOD PHOS POWDER 250 MG PACK PO SCH ×3 (10:03→20:23)
[2020-05-26] MEDS ORDERED: HALOPERIDOL 5 MG/ML AMP IM ONE (13:13)
[2020-05-26] MEDS ORDERED: POTASSIUM CHLORIDE 20 MEQ/15 ML UDCUP PO ONE (19:03)
[2020-05-27] MEDS: DILTIAZEM 60 MG TABLET PO SCH ×3 (00:43→12:44)
[2020-05-27] MEDS: INSULIN REGULAR 100 UNIT/ML SUBCUT SCH ×6 (00:43→20:45)
[2020-05-27] MEDS: PIPERACILLIN/TAZOBACTAM 3,375 MG in SODIUM CHLORIDE 0.9% 100 ML IV SCH (05:23)
[2020-05-27 05:56] LABS: Basophils # 0.1 10*3/uL (0.0-0.2); Basophils % 0.5 % (0.0-0.8); Eosinophils # 0.1 10*3/uL (0.0-0.87); Hematocrit 32.2 VOL% (42.0-52.0); Hemoglobin 10.7 GM/DL (14.0-18.0); Immature Granulocytes % 2.4 %; Immature Granulocytes Absolute 0.23 #; Lymphocytes # 1.5 10*3/uL (1.4-4.0); Lymphocytes % 15.5 % (21.2-54.2); Mean Corpuscular HGB Conc 33.2 GM/DL (32-36); Mean Platelet Volume 9.2 FL (9.6-12.0); Neutrophils % 66.6 % (38.7-73.9); Platelet Count 156 T/CUMM (130-400); Red Blood Count 3.54 MC/CUMM (3.8-5.5); Red Cell Distribution Width 14.9 % (9.3-17.3); White Blood Count 9.6 T/CUMM (4-12)
[2020-05-27 06:09] LABS: Calcium 8.4 MG/DL (8.5-10.1); Osmolality,Calculated 282.3 MOS/KG (273-304)
[2020-05-27 07:12] LABS: Band Neutrophils 2 % (0-10); Eosinophils 1 % (0-10); Lymphocytes 19 % (20-55); Segmented Neutrophils 63 % (50-85); Total Cells Counted 100
[2020-05-27 07:13] LABS: Hypochromasia Slight; Platelet Estimate Decreased
[2020-05-27] MEDS: INSULIN GLARGINE 100 UNIT/ML SUBCUT SCH (10:34)
[2020-05-27] MEDS: APIXABAN 5 MG TABLET PO SCH ×2 (10:34→21:44)
[2020-05-27] MEDS: FOLIC ACID 1 MG TABLET PO SCH (10:34)
[2020-05-27] MEDS: POTASSIUM CHLORIDE 20 MEQ TABLET PO SCH ×2 (10:34→21:44)
[2020-05-27] MEDS: METOPROLOL TARTRATE 50 MG TABLET PO SCH (10:34)
[2020-05-27] MEDS: LORazepam 1 MG TABLET PO SCH ×2 (10:34→21:44)
[2020-05-27] MEDS: MEROPENEM 500 MG in SODIUM CHLORIDE 0.9% 100 ML IV SCH ×3 (10:34→21:44)
[2020-05-27] MEDS: POTASSIUM PHOS/SOD PHOS POWDER 250 MG PACK PO SCH ×3 (10:35→21:45)
[2020-05-27] MEDS: FAMOTIDINE 20 MG/2 ML VIAL IV SCH (10:35)
[2020-05-27] MEDS ORDERED: FUROSEMIDE 40 MG/4 ML VIAL IV ONE (16:55)
[2020-05-27] MEDS: DILTIAZEM 30 MG TABLET PO SCH (17:53)
[2020-05-27] MEDS ORDERED: METOPROLOL TARTRATE 50 MG TABLET PO SCH (21:00)
[2020-05-27] MEDS: DULoxetine 30 MG CAPSULE PO SCH (21:44)
[2020-05-28] MEDS: DILTIAZEM 30 MG TABLET PO SCH ×4 (00:58→17:13)
[2020-05-28] MEDS: INSULIN REGULAR 100 UNIT/ML SUBCUT SCH ×6 (01:11→21:00)
[2020-05-28] MEDS: MEROPENEM 500 MG in SODIUM CHLORIDE 0.9% 100 ML IV SCH ×4 (04:14→21:00)
[2020-05-28 06:20] LABS: Basophils # 0.1 10*3/uL (0.0-0.2); Basophils % 0.6 % (0.0-0.8); Eosinophils # 0.1 10*3/uL (0.0-0.87); Eosinophils % 1.1 % (0.00-10.9); Immature Granulocytes % 2.9 %; Immature Granulocytes Absolute 0.32 #; Lymphocytes # 1.5 10*3/uL (1.4-4.0); Lymphocytes % 13.8 % (21.2-54.2); Mean Corpuscular HGB Conc 33.3 GM/DL (32-36); Mean Corpuscular Volume 91.1 FL (87-102); Mean Platelet Volume 9.5 FL (9.6-12.0); Neutrophils % 63.6 % (38.7-73.9); Platelet Count 197 T/CUMM (130-400); Red Blood Count 3.95 MC/CUMM (3.8-5.5); Red Cell Distribution Width 14.7 % (9.3-17.3)
[2020-05-28 06:49] LABS: Calcium 8.7 MG/DL (8.5-10.1); Osmolality,Calculated 273.5 MOS/KG (273-304)
[2020-05-28 06:53] LABS: Anisocytosis Slight; Band Neutrophils 2 % (0-10); Lymphocytes 15 % (20-55); Macrocytosis 1+; Platelet Estimate Normal; Segmented Neutrophils 62 % (50-85); Total Cells Counted 100
[2020-05-28] MEDS: INSULIN GLARGINE 100 UNIT/ML SUBCUT SCH (08:08)
[2020-05-28] MEDS: LORazepam 1 MG TABLET PO SCH ×2 (08:57→21:00)
[2020-05-28] MEDS: FAMOTIDINE 20 MG/2 ML VIAL IV SCH (08:58)
[2020-05-28] MEDS: POTASSIUM PHOS/SOD PHOS POWDER 250 MG PACK PO SCH ×3 (08:58→21:00)
[2020-05-28] MEDS: SOTALOL 80 MG TABLET PO SCH ×2 (08:58→21:00)
[2020-05-28] MEDS: APIXABAN 5 MG TABLET PO SCH ×2 (08:58→21:00)
[2020-05-28] MEDS: FOLIC ACID 1 MG TABLET PO SCH (08:58)
[2020-05-28] MEDS: POTASSIUM CHLORIDE 20 MEQ TABLET PO SCH ×2 (08:58→21:00)
[2020-05-28] MEDS ORDERED: METOPROLOL TARTRATE 50 MG TABLET PO SCH (09:00)
[2020-05-28] MEDS: POTASSIUM CHLORIDE RIDER 10 MEQ in PREMIX 1 EACH IV PRN ×4 (09:30→12:44)
[2020-05-28] MEDS ORDERED: INSULIN GLARGINE 100 UNIT/ML SUBCUT SCH (15:43)
[2020-05-28] MEDS: DULoxetine 30 MG CAPSULE PO SCH (21:00)
[2020-05-29] MEDS: DILTIAZEM 30 MG TABLET PO SCH ×2 (00:51→05:26)
[2020-05-29] MEDS: INSULIN REGULAR 100 UNIT/ML SUBCUT SCH ×6 (01:05→22:35)
[2020-05-29] MEDS: MEROPENEM 500 MG in SODIUM CHLORIDE 0.9% 100 ML IV SCH ×4 (02:15→22:35)
[2020-05-29 06:09] LABS: Basophils # 0.1 10*3/uL (0.0-0.2); Basophils % 0.5 % (0.0-0.8); Eosinophils # 0.2 10*3/uL (0.0-0.87); Eosinophils % 1.6 % (0.00-10.9); Hematocrit 35.8 VOL% (42.0-52.0); Hemoglobin 11.7 GM/DL (14.0-18.0); Immature Granulocytes Absolute 0.55 #; Lymphocytes # 1.7 10*3/uL (1.4-4.0); Lymphocytes % 15.4 % (21.2-54.2); Mean Corpuscular HGB Conc 32.7 GM/DL (32-36); Mean Corpuscular Volume 91.1 FL (87-102); Mean Platelet Volume 9.4 FL (9.6-12.0); Monocytes % 17.5 % (1.7-12.7); Platelet Count 249 T/CUMM (130-400); Red Blood Count 3.93 MC/CUMM (3.8-5.5); Red Cell Distribution Width 14.6 % (9.3-17.3); White Blood Count 11.1 T/CUMM (4-12)
[2020-05-29 06:12] LABS: Calcium 8.8 MG/DL (8.5-10.1); Osmolality,Calculated 273.7 MOS/KG (273-304)
[2020-05-29 06:14] LABS: Calcium 8.8 MG/DL (8.5-10.1); Osmolality,Calculated 275.5 MOS/KG (273-304)
[2020-05-29 07:04] LABS: Eosinophils 3 % (0-10); Lymphocytes 16 % (20-55); Segmented Neutrophils 65 % (50-85); Total Cells Counted 100
[2020-05-29 07:05] LABS: Hypochromasia 1+; Microcytosis 1+; Platelet Estimate Adequate
[2020-05-29] MEDS: SOTALOL 80 MG TABLET PO SCH ×2 (09:23→22:35)
[2020-05-29] MEDS: LORazepam 1 MG TABLET PO SCH ×2 (09:23→22:35)
[2020-05-29] MEDS: POTASSIUM CHLORIDE 20 MEQ TABLET PO SCH ×2 (09:24→22:35)
[2020-05-29] MEDS: DILTIAZEM CD 240 MG CAPSULE PO SCH (09:24)
[2020-05-29] MEDS: FOLIC ACID 1 MG TABLET PO SCH (09:24)
[2020-05-29] MEDS: POTASSIUM PHOS/SOD PHOS POWDER 250 MG PACK PO SCH ×3 (09:24→22:35)
[2020-05-29] MEDS: INSULIN GLARGINE 100 UNIT/ML SUBCUT SCH (09:25)
[2020-05-29] MEDS: APIXABAN 5 MG TABLET PO SCH ×2 (09:26→22:35)
[2020-05-29] MEDS: FAMOTIDINE 20 MG/2 ML VIAL IV SCH (09:26)
[2020-05-29] MEDS: DULoxetine 30 MG CAPSULE PO SCH (22:35)
[2020-05-30] MEDS: INSULIN REGULAR 100 UNIT/ML SUBCUT SCH ×6 (01:19→22:25)
[2020-05-30] MEDS: MEROPENEM 500 MG in SODIUM CHLORIDE 0.9% 100 ML IV SCH ×4 (03:25→22:25)
[2020-05-30 06:22] LABS: Basophils # 0.1 10*3/uL (0.0-0.2); Basophils % 0.4 % (0.0-0.8); Eosinophils # 0.2 10*3/uL (0.0-0.87); Eosinophils % 1.6 % (0.00-10.9); Hematocrit 35.3 VOL% (42.0-52.0); Hemoglobin 11.6 GM/DL (14.0-18.0); Immature Granulocytes % 5.6 %; Lymphocytes # 2.5 10*3/uL (1.4-4.0); Lymphocytes % 20.1 % (21.2-54.2); Mean Corpuscular HGB Conc 32.9 GM/DL (32-36); Mean Corpuscular Volume 91.2 FL (87-102); Mean Platelet Volume 9.4 FL (9.6-12.0); Neutrophils % 55.3 % (38.7-73.9); Platelet Count 286 T/CUMM (130-400); Red Blood Count 3.87 MC/CUMM (3.8-5.5); Red Cell Distribution Width 14.5 % (9.3-17.3); White Blood Count 12.5 T/CUMM (4-12)
[2020-05-30 06:30] LABS: Calcium 8.8 MG/DL (8.5-10.1); Osmolality,Calculated 279.4 MOS/KG (273-304)
[2020-05-30 06:31] LABS: Calcium 8.4 MG/DL (8.5-10.1); Osmolality,Calculated 278.4 MOS/KG (273-304)
[2020-05-30] MEDS: APIXABAN 5 MG TABLET PO SCH ×2 (08:28→22:25)
[2020-05-30] MEDS: DILTIAZEM CD 240 MG CAPSULE PO SCH (08:28)
[2020-05-30] MEDS: POTASSIUM CHLORIDE 20 MEQ TABLET PO SCH ×2 (08:28→22:25)
[2020-05-30] MEDS: LORazepam 1 MG TABLET PO SCH ×2 (08:28→22:25)
[2020-05-30] MEDS: POTASSIUM PHOS/SOD PHOS POWDER 250 MG PACK PO SCH ×3 (08:28→22:25)
[2020-05-30] MEDS: SOTALOL 80 MG TABLET PO SCH ×2 (08:28→22:25)
[2020-05-30] MEDS: FOLIC ACID 1 MG TABLET PO SCH (08:28)
[2020-05-30] MEDS: FAMOTIDINE 20 MG/2 ML VIAL IV SCH (08:29)
[2020-05-30 08:51] LABS: Anisocytosis Slight; Band Neutrophils 4 % (0-10); Eosinophils 2 % (0-10); Lymphocytes 21 % (20-55); Macrocytosis 1+; Metamyelocytes 4 %; Platelet Estimate Normal; Segmented Neutrophils 54 % (50-85); Total Cells Counted 100
[2020-05-30] MEDS: INSULIN GLARGINE 100 UNIT/ML SUBCUT SCH (10:21)
[2020-05-30] MEDS: DULoxetine 30 MG CAPSULE PO SCH (22:25)
[2020-05-31] MEDS: INSULIN REGULAR 100 UNIT/ML SUBCUT SCH ×6 (00:19→21:45)
[2020-05-31] MEDS: MEROPENEM 500 MG in SODIUM CHLORIDE 0.9% 100 ML IV SCH ×4 (03:28→22:39)
[2020-05-31] MEDS: LORazepam 1 MG TABLET PO SCH ×2 (10:29→21:46)
[2020-05-31] MEDS: DILTIAZEM CD 240 MG CAPSULE PO SCH (10:30)
[2020-05-31] MEDS: SOTALOL 80 MG TABLET PO SCH ×2 (10:30→21:47)
[2020-05-31] MEDS: POTASSIUM PHOS/SOD PHOS POWDER 250 MG PACK PO SCH ×3 (10:30→21:46)
[2020-05-31] MEDS: POTASSIUM CHLORIDE 20 MEQ TABLET PO SCH ×2 (10:31→21:47)
[2020-05-31] MEDS: APIXABAN 5 MG TABLET PO SCH ×2 (10:31→21:47)
[2020-05-31] MEDS: FOLIC ACID 1 MG TABLET PO SCH (10:31)
[2020-05-31] MEDS: FAMOTIDINE 20 MG/2 ML VIAL IV SCH (10:31)
[2020-05-31] MEDS: DESITIN 4OZ/NYSTATIN 15 GRAM MIXTURE PASTE TOP SCH ×2 (11:58→22:39)
[2020-05-31] MEDS: INSULIN GLARGINE 100 UNIT/ML SUBCUT SCH (11:58)
[2020-05-31] MEDS: DULoxetine 30 MG CAPSULE PO SCH (21:46)
[2020-06-01] MEDS: INSULIN REGULAR 100 UNIT/ML SUBCUT SCH ×6 (01:08→21:53)
[2020-06-01] MEDS: MEROPENEM 500 MG in SODIUM CHLORIDE 0.9% 100 ML IV SCH ×4 (03:30→21:55)
[2020-06-01] MEDS: LORazepam 1 MG TABLET PO SCH ×2 (08:28→21:54)
[2020-06-01] MEDS: DILTIAZEM CD 240 MG CAPSULE PO SCH (08:28)
[2020-06-01] MEDS: POTASSIUM PHOS/SOD PHOS POWDER 250 MG PACK PO SCH ×3 (08:28→21:56)
[2020-06-01] MEDS: APIXABAN 5 MG TABLET PO SCH ×2 (08:28→21:54)
[2020-06-01] MEDS: SOTALOL 80 MG TABLET PO SCH ×2 (08:28→21:54)
[2020-06-01] MEDS: POTASSIUM CHLORIDE 20 MEQ TABLET PO SCH ×2 (08:29→21:55)
[2020-06-01] MEDS: FAMOTIDINE 20 MG/2 ML VIAL IV SCH (08:29)
[2020-06-01] MEDS: FOLIC ACID 1 MG TABLET PO SCH (08:29)
[2020-06-01] MEDS: DESITIN 4OZ/NYSTATIN 15 GRAM MIXTURE PASTE TOP SCH ×2 (08:30→21:56)
[2020-06-01] MEDS: INSULIN GLARGINE 100 UNIT/ML SUBCUT SCH (08:30)
[2020-06-01] MEDS ORDERED: PHENOL 1.4% THROAT SPRAY 177 ML BOTTLE PO PRN (11:53)
[2020-06-01] MEDS ORDERED: NYSTATIN 500,000 UNIT/5 ML UDCUP SWISH/SWAL SCH (13:00)
[2020-06-01] MEDS: NYSTATIN 500,000 UNIT/5 ML UDCUP SWISH/SWAL SCH ×3 (15:50→21:55)
[2020-06-01] MEDS: ACETAMINOPHEN 325 MG TABLET PO PRN (18:02)
[2020-06-01] MEDS: DULoxetine 30 MG CAPSULE PO SCH (21:54)
[2020-06-02] MEDS: MEROPENEM 500 MG in SODIUM CHLORIDE 0.9% 100 ML IV SCH ×5 (04:48→21:28)
[2020-06-02] MEDS: INSULIN REGULAR 100 UNIT/ML SUBCUT SCH ×5 (04:49→21:25)
[2020-06-02 06:58] LABS: Albumin 2.3 G/DL (3.4-5.0); Bilirubin,Total 0.6 MG/DL (0.2-1.0); Calcium 8.8 MG/DL (8.5-10.1); Osmolality,Calculated 268.1 MOS/KG (273-304); Total Protein 7.4 G/DL (6.4-8.3)
[2020-06-02] MEDS: FAMOTIDINE 20 MG/2 ML VIAL IV SCH ×2 (07:54→08:54)
[2020-06-02] MEDS: POTASSIUM CHLORIDE 20 MEQ TABLET PO SCH ×3 (07:55→21:27)
[2020-06-02] MEDS: INSULIN GLARGINE 100 UNIT/ML SUBCUT SCH ×2 (07:55→08:54)
[2020-06-02] MEDS: FOLIC ACID 1 MG TABLET PO SCH ×2 (07:55→08:54)
[2020-06-02] MEDS: DILTIAZEM CD 240 MG CAPSULE PO SCH ×2 (07:56→08:53)
[2020-06-02] MEDS: NYSTATIN 500,000 UNIT/5 ML UDCUP SWISH/SWAL SCH ×6 (07:56→21:28)
[2020-06-02] MEDS: DESITIN 4OZ/NYSTATIN 15 GRAM MIXTURE PASTE TOP SCH ×2 (07:56→21:26)
[2020-06-02] MEDS: APIXABAN 5 MG TABLET PO SCH ×3 (07:56→21:27)
[2020-06-02] MEDS: POTASSIUM PHOS/SOD PHOS POWDER 250 MG PACK PO SCH ×4 (07:56→21:28)
[2020-06-02] MEDS: SOTALOL 80 MG TABLET PO SCH ×3 (07:56→21:26)
[2020-06-02] MEDS: ACETAMINOPHEN 325 MG TABLET PO PRN (18:02)
[2020-06-02] MEDS: DULoxetine 30 MG CAPSULE PO SCH (21:27)
[2020-06-02] MEDS ORDERED: methylPREDNISolone SOD SUC 40 MG/1 ML VIAL IV SCH (22:30)
[2020-06-03] MEDS: INSULIN REGULAR 100 UNIT/ML SUBCUT SCH ×6 (03:31→20:27)
[2020-06-03] MEDS: MEROPENEM 500 MG in SODIUM CHLORIDE 0.9% 100 ML IV SCH ×4 (03:31→20:28)
[2020-06-03 06:04] LABS: Basophils % 0.1 % (0.0-0.8); Eosinophils % 0.1 % (0.00-10.9); Hematocrit 37.2 VOL% (42.0-52.0); Hemoglobin 12.2 GM/DL (14.0-18.0); Immature Granulocytes % 1.5 %; Immature Granulocytes Absolute 0.11 #; Lymphocytes # 0.9 10*3/uL (1.4-4.0); Lymphocytes % 12.4 % (21.2-54.2); Mean Corpuscular HGB Conc 32.8 GM/DL (32-36); Mean Corpuscular Volume 90.1 FL (87-102); Mean Platelet Volume 9.6 FL (9.6-12.0); Monocytes % 1.8 % (1.7-12.7); Neutrophils % 84.1 % (38.7-73.9); Platelet Count 379 T/CUMM (130-400); Red Blood Count 4.13 MC/CUMM (3.8-5.5); Red Cell Distribution Width 13.5 % (9.3-17.3); White Blood Count 7.3 T/CUMM (4-12)
[2020-06-03 06:17] LABS: Calcium 8.6 MG/DL (8.5-10.1); Osmolality,Calculated 265.7 MOS/KG (273-304)
[2020-06-03] MEDS: INSULIN GLARGINE 100 UNIT/ML SUBCUT SCH (09:54)
[2020-06-03] MEDS: DILTIAZEM CD 240 MG CAPSULE PO SCH (09:56)
[2020-06-03] MEDS: POTASSIUM PHOS/SOD PHOS POWDER 250 MG PACK PO SCH ×3 (09:56→20:28)
[2020-06-03] MEDS: SOTALOL 80 MG TABLET PO SCH ×2 (09:56→20:29)
[2020-06-03] MEDS: APIXABAN 5 MG TABLET PO SCH ×2 (09:56→20:28)
[2020-06-03] MEDS: POTASSIUM CHLORIDE 20 MEQ TABLET PO SCH ×2 (09:57→20:28)
[2020-06-03] MEDS: NYSTATIN 500,000 UNIT/5 ML UDCUP SWISH/SWAL SCH ×4 (09:57→20:29)
[2020-06-03] MEDS: FOLIC ACID 1 MG TABLET PO SCH (09:57)
[2020-06-03] MEDS: DESITIN 4OZ/NYSTATIN 15 GRAM MIXTURE PASTE TOP SCH ×2 (10:01→20:26)
[2020-06-03] MEDS: FAMOTIDINE 20 MG/2 ML VIAL IV SCH (10:03)
[2020-06-03] MEDS: PANTOPRAZOLE 40 MG TABLET PO SCH (12:04)
[2020-06-03] MEDS: DULoxetine 30 MG CAPSULE PO SCH (20:28)
[2020-06-04] MEDS: INSULIN REGULAR 100 UNIT/ML SUBCUT SCH ×4 (01:00→12:31)
[2020-06-04] MEDS: MEROPENEM 500 MG in SODIUM CHLORIDE 0.9% 100 ML IV SCH ×2 (02:44→09:55)
[2020-06-04 05:34] LABS: Basophils % 0.2 % (0.0-0.8); Eosinophils # 0.1 10*3/uL (0.0-0.87); Eosinophils % 0.5 % (0.00-10.9); Hematocrit 34.7 VOL% (42.0-52.0); Hemoglobin 11.4 GM/DL (14.0-18.0); Immature Granulocytes % 0.8 %; Immature Granulocytes Absolute 0.09 #; Lymphocytes # 2.8 10*3/uL (1.4-4.0); Lymphocytes % 26.3 % (21.2-54.2); Mean Corpuscular HGB Conc 32.9 GM/DL (32-36); Mean Corpuscular Volume 90.6 FL (87-102); Mean Platelet Volume 9.4 FL (9.6-12.0); Monocytes % 8.3 % (1.7-12.7); Neutrophils % 63.9 % (38.7-73.9); Platelet Count 395 T/CUMM (130-400); Red Blood Count 3.83 MC/CUMM (3.8-5.5); Red Cell Distribution Width 13.6 % (9.3-17.3); White Blood Count 10.6 T/CUMM (4-12)
[2020-06-04 05:56] LABS: Calcium 8.7 MG/DL (8.5-10.1); Osmolality,Calculated 268.2 MOS/KG (273-304)
[2020-06-04] MEDS ORDERED: PANTOPRAZOLE 40 MG TABLET PO SCH (09:00)
[2020-06-04] MEDS: NYSTATIN 500,000 UNIT/5 ML UDCUP SWISH/SWAL SCH ×2 (09:53→12:29)
[2020-06-04] MEDS: INSULIN GLARGINE 100 UNIT/ML SUBCUT SCH ×2 (09:53→10:03)
[2020-06-04] MEDS: FOLIC ACID 1 MG TABLET PO SCH (09:54)
[2020-06-04] MEDS: PANTOPRAZOLE 40 MG TABLET PO SCH (09:54)
[2020-06-04] MEDS: POTASSIUM CHLORIDE 20 MEQ TABLET PO SCH (09:54)
[2020-06-04] MEDS: POTASSIUM PHOS/SOD PHOS POWDER 250 MG PACK PO SCH (09:54)
[2020-06-04] MEDS: DILTIAZEM CD 240 MG CAPSULE PO SCH (09:54)
[2020-06-04] MEDS: SOTALOL 80 MG TABLET PO SCH (09:54)
[2020-06-04] MEDS: DESITIN 4OZ/NYSTATIN 15 GRAM MIXTURE PASTE TOP SCH (09:56)
[2020-06-04] MEDS: APIXABAN 5 MG TABLET PO SCH (10:16)
[2020-06-04 11:32] VITALS: BP 140/68
== END 2020-06-04 14:55 | disposition swing bed (61) | DRG 871 ==
LOC: N.ED 01:48 → SUATTDRO 04:48 → N.EDINP 04:48 → N.ICU 05:07 → N.CC 05:31 → N.2E 05-26 15:58 → N.3E 05-31 16:07
PROVIDERS: ADMIT Internal Medicine; ATTEND Internal Medicine